=== PATIENT | female | born 1935 | race Caucasian/White ===

== ENCOUNTER 2019-04-28 16:24 | Inpatient (IN) ==
[2019-04-29] MEDS ORDERED: NITROGLYCERIN SL 0.4 MG/TAB TAB SL PRN (02:27)
[2019-04-29] MEDS ORDERED: POLYETHYLENE (MIRALAX) 17 GM PACK PO PRN (03:25)
[2019-04-29] MEDS ORDERED: GLUCOSE 10 TABS/TUBE PO PRN (03:26)
[2019-04-29] MEDS ORDERED: GLUCOSE 40% GEL 15 GM TUBE PO PRN (03:26)
[2019-04-29] MEDS ORDERED: DEXTROSE 50% 50 ML SYRINGE IV PRN (03:26)
[2019-04-29] MEDS ORDERED: CARBOHYDRATES FOR HYPOGLYCEMIA PO PRN (03:26)
[2019-04-29] MEDS ORDERED: GLUCAGON FOR INJ 1 MG VIAL SQ PRN (03:26)
[2019-04-29] MEDS: PATIENT'S ALLERGY INFO NEEDS ENTERED SCH ×2 (03:39→03:48)
[2019-04-29 03:43] LABS: Basophils # (auto) 0.02 K/uL (0-0.2); Basophils % (auto) 0.2 %; Eosinophils # (auto) 0.34 K/uL (0-0.5); Eosinophils % (auto) 3.9 %; Hematocrit (blood only) 30.6 % (37-47); Hemoglobin 9.8 g/dL (12.0-16.0); Immature Granulocytes # (auto) 0.01 K/uL (0.00-0.02); Immature Granulocytes % (auto) 0.1 %; Lymphocytes # (auto) 0.93 K/uL (1.2-3.4); Lymphocytes % (auto) 10.5 %; Mean Corpuscular Volume 87.4 fL (80-100); Mean Platelet Volume 11.1 fL (7.4-10.4); Monocytes # (auto) 0.97 K/uL (0.11-0.59); Neutrophils # (auto) 6.56 K/uL (1.4-6.5); Neutrophils % (auto) 74.3 %; Platelet Count 216 K/uL (130-400); RDW Coefficient of Variation 15.8 % (11.5-14.5); RDW Standard Deviation 49.6 fL (36.4-46.3); White Blood Count 8.83 K/uL (4.8-10.8)
[2019-04-29 03:57] LABS: INR 2.6 (0.9-1.1)
[2019-04-29 04:07] LABS: Albumin Level 2.7 gm/dl (3.4-5.0); BUN Creatinine Ratio 37.1 (10-20); Calcium 7.2 mg/dl (8.5-10.1); Creatinine Clr Calc Pharmacy 10.4 ml/min; Est GFR (African American) 13.1; Est GFR (Non-African American) 11.3; Magnesium 2.4 mg/dl (1.8-2.4); Potassium 2.3 mmol/L (3.5-5.1)
[2019-04-29 04:15] LABS: Albumin Globulin Ratio 0.5 (0.9-2); Bilirubin,Total 0.5 mg/dl (0.2-1); Globulin 5.1 gm/dl (2.5-4.0); Thyroid Stimulating Hormone 1.74 uIu/ml (0.300-4.500); Total Protein 7.8 gm/dl (6.4-8.2)
[2019-04-29] MEDS ORDERED: POTASSIUM CHLORIDE 40 MEQ in SODIUM CHLORIDE 0.9% 1000ML 1,000 ML IV SCH (04:30)
[2019-04-29] MEDS ORDERED: POTASSIUM CHLORIDE 20 MEQ TABCR PO STA (04:30)
[2019-04-29] MEDS ORDERED: INSULIN GLARGINE SOLOSTAR 100 UNITS/ML 3 ML PEN SC STA (04:34)
--- NOTE | 2019-04-29 04:37 | History & Physical Report ---
Date of Service April 29, 2019 Assessment & Plan (1) ARF (acute renal failure): ARF on CRI Recurrent AF Rate controlled INR therapeutic, history of recent LE DVT on Coumadin LGIB Rule out C. 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 fib rate control Cardiology consult RE recurrent AF Clear liquids for now RE L GIB Stool C. difficile May need GI consult if with worsening Basal insulin, ISS BG goal [id number], carb count coverage, update hemoglobin A1c PT OT eval DVT prophylaxis. Coumadin INR goal between 2 and 3 if hemoglobin stable and LGIB not progressive Full code Patient daughter requesting updates from providers. Ms. Crystal Dave, contact #[phone]. History of Present Illness As per records, lactate Chief Complaint: Abnormal kidney function Primary Care Provider: Dr. Kendrick History obtained from patient, family, and records. History somewhat limited from patient due to hearing impairment. Medical history significant for PAF, hypertension, hyperlipidemia, PVD status post surgery as per records, recent LE DVT on Coumadin, DM 2, insulin requiring, CRI (baseline creatinine 2.5-3), chronic anemia (baseline hemoglobin 8.6, 03/2019), history diverticulosis, mood disorder, possible dementia as per records. Recent confinement [facility] March 14-2018 for acute bilateral lower extremity DVT, ARF on CRI. Paroxysmal atrial fibrillation on EKG noted during confinement. TTE during confinement : Calculated LV ejection Fraction = 62% (bi-plane method of discs). There is a small sized inferior wall motion abnormality with hypokinesis of the segments. The left ventricular diastolic function is moderately abnormal (grade II). The left atrium is mildly enlarged. There is aortic valve sclerosis without stenosis. The right atrial size is normal. The right ventricular cavity size is normal (basal dimension < 4.2 cm RV apical 4 chamber view). The right ventricular systolic function is normal as assessed by tricuspid annular plane systolic excursion (TAPSE) (normal >1.7 cm). Trivial tricuspid regurgitation is present. The signal is inadequate to calculate pulmonary artery systolic pressure. Patient discharged to [place] rehab facility on Coumadin Rx for lower extremity DVT. Kidney function back to baseline on discharge. Two [facility] ER visits last month for epistaxis. Patient discharge home from rehab facility 2 weeks ago. Daughter has been staying with patient at home. Currently in the process of finding care home facility for patient given increased need for supervision as per records. Few weeks weeks history of intermittent rectal bleeding without abdominal pain without emesis. Symptoms noted at rehab facility as per daughter. Outpatient providers aware of issue. Patient had follow-up with PCP 2 days ago. Plavix stopped while patient on Coumadin as per records. MMSE score at the office was 17 indicating moderate to severe dementia as per records. Worsening rectal bleeding noted yesterday as per records. Loose bloody stools as per patient without abdominal pain. No chest pain, no S OB no fluid retention. Patient brought to [facility] for evaluation. Hemoglobin noted to be 8.9, potassium 2.6, creatinine 3.9, lactate 2.8. UA hazy, negative ketones, positive for blood, trace protein, negative nitrite, WBC esterase positive, epithelial cells positive A. fib noted on EKG. Patient transferred to [facility] for Nephrology services. Patient received 1 unit packed RBC at [facility] ER prior to transfer. 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, was living by herself at home prior to February 2019 [facility] confinement Allergies Allergy/AdvReac Type Severity Reaction Status Date / Time cephalexin [From Keflex] Allergy Mild Hives Verified 04/29/19 03:39 FELICIANO Inhibitors AdvReac Mild Cough Verified 04/29/19 03:39 Home Medications Home Medications Medication Instructions Recorded Confirmed Type acetaminophen 325 mg PO UD PRN 04/28/19 04/28/19 History alprazolam [Xanax] 0.25 mg PO DAILY PRN 04/28/19 04/28/19 History amlodipine 10 mg PO DAILY 04/28/19 04/28/19 History aspirin [Aspir-81] 81 mg PO DAILY 04/28/19 04/28/19 History cholecalciferol (vitamin D3) 400 unit PO DAILY 04/28/19 04/28/19 History [Vitamin D3] docusate sodium 100 mg PO BID 04/28/19 04/28/19 History insulin asp prt-insulin aspart 10 unit SUBCUT QPM 04/28/19 04/28/19 History [Novolog Mix 70-30FlexPen U-100] insulin asp prt-insulin aspart 24 unit SUBCUT QAM 04/28/19 04/28/19 History [Novolog Mix 70-30FlexPen U-100] levothyroxine 88 mcg PO DAILY 04/28/19 04/28/19 History metolazone 5 mg PO 2XWK 04/28/19 04/28/19 History mirabegron [Myrbetriq] 25 mg PO DAILY 04/28/19 04/28/19 History pantoprazole [Protonix] 40 mg PO DAILY 04/28/19 04/28/19 History polyethylene glycol 3350 [Miralax] 17 g PO DAILY PRN 04/28/19 04/28/19 History rosuvastatin [Crestor] 40 mg PO DAILY 04/28/19 04/28/19 History sertraline [Zoloft] 50 mg PO DAILY 04/28/19 04/28/19 History torsemide 60 mg PO DAILY 04/28/19 04/28/19 History tramadol 25 mg PO Q8 PRN 04/28/19 04/28/19 History vitamin E 100 unit PO DAILY 04/28/19 04/28/19 History warfarin [Coumadin] 2 mg PO HS 04/28/19 04/28/19 History Past Med/Surg History Social History Preferred Language: Greenlandic Communication Ability: Effective Time Lock Expert Required: No Beliefs That Will Affect Care: None Current Living Situation: Alone Other Information That Helps Us Care for You: No Feels Safe at Home: Yes Safety Concerns: Feels Safe At This Time Smoking Status: Never smoker Hx Alcohol Use: No Hx Substance Use: No Review of Systems Review of Systems: As per HPI, all 10 systems reviewed, all other ROS negative Physical Exam Physical Exam: GENERAL: Comfortable, hard of hearing, oriented to day, no respiratory distress SKIN: Pallor , warm HEENT: Pale palpebral conjunctivae, no ptosis, dry buccal mucosa NECK : Supple, no tenderness CHEST : Decreased breath sounds , no tenderness HEART : Irregular , no obvious murmurs ABDOMEN: Some distention, nontender EXTREMITIES : Minimal LE swelling, no LE tenderness, no other conspicuous deformities noted NEUROLOGIC : Coherent, no facial asymmetry, hard of hearing, intention tremors, no other gross focality Results & Data Vital Signs (Past 12 Hours) Vital Signs Temp Pulse Pulse Resp BP Pulse Ox 04/29/19 03:06 70 04/29/19 02:26 36.8 C 50 L 20 181/67 H 93 Laboratory Results Laboratory Results WBC 8.83 K/uL (4.8-10.8) 04/29/19 03:29 RBC 3.50 M/uL (4.2-5.4) L 04/29/19 03:29 Hgb 9.8 g/dL (12.0-16.0) L 04/29/19 03:29 Hct 30.6 % (37-47) L 04/29/19 03:29 MCV 87.4 fL (80-100) 04/29/19 03:29 MCH 28.0 pg (25-34) 04/29/19 03:29 MCHC 32.0 g/dL (32-36) 04/29/19 03:29 RDW Std Deviation 49.6 fL (36.4-46.3) H 04/29/19 03:29 RDW Coeff of Frank 15.8 % (11.5-14.5) H 04/29/19 03:29 Plt Count 216 K/uL (130-400) 04/29/19 03:29 MPV 11.1 fL (7.4-10.4) H 04/29/19 03:29 Immature Gran % (Auto) 0.1 % 04/29/19 03:29 Neut % (Auto) 74.3 % 04/29/19 03:29 Lymph % (Auto) 10.5 % 04/29/19 03:29 [place] % (Auto) 11.0 % 04/29/19 03:29 Eos % (Auto) 3.9 % 04/29/19 03:29 Baso % (Auto) 0.2 % 04/29/19 03:29 Immature Gran # (Auto) 0.01 K/uL (0.00-0.02) 04/29/19 03:29 Neut # (Auto) 6.56 K/uL (1.4-6.5) H 04/29/19 03:29 Lymph # (Auto) 0.93 K/uL (1.2-3.4) L 04/29/19 03:29 [place] # (Auto) 0.97 K/uL (0.11-0.59) H 04/29/19 03:29 Eos # (Auto) 0.34 K/uL (0-0.5) 04/29/19 03:29 Baso # (Auto) 0.02 K/uL (0-0.2) 04/29/19 03:29 PT 25.0 Seconds (9.0-12.0) H 04/29/19 03:29 INR 2.6 (0.9-1.1) H 04/29/19 03:29 Sodium 134 mmol/L (136-145) L 04/29/19 03:29 Potassium 2.3 mmol/L (3.5-5.1) L* 04/29/19 03:29 Chloride 88 mmol/L (98-107) L 04/29/19 03:29 Carbon Dioxide 36 mmol/L (21-32) H 04/29/19 03:29 Anion Gap 10.0 (3-11) 04/29/19 03:29 BUN 129 mg/dl (7-18) H 04/29/19 03:29 Creatinine 3.49 mg/dl (0.6-1.2) H 04/29/19 03:29 Est Cr Clr Drug Dosing 10.4 ml/min 04/29/19 03:29 Est GFR ( Amer) 13.1 04/29/19 03:29 Est GFR (Non-Af Amer) 11.3 04/29/19 03:29 BUN/Creatinine Ratio 37.1 (10-20) H 04/29/19 03:29 Glucose 235 mg/dl (70-99) H 04/29/19 03:29 POC Glucose 253 mg/dl (70-99) H 04/29/19 02:43 Lactate 1.2 mmol/L (0.4-2.0) 04/29/19 03:29 Calcium 7.2 mg/dl (8.5-10.1) L 04/29/19 03:29 Magnesium 2.4 mg/dl (1.8-2.4) 04/29/19 03:29 Total Bilirubin 0.5 mg/dl (0.2-1) 04/29/19 03:29 AST 17 U/L (15-37) 04/29/19 03:29 ALT 13 U/L (12-78) 04/29/19 03:29 Alkaline Phosphatase 73 U/L (45-117) 04/29/19 03:29 Total Protein 7.8 gm/dl (6.4-8.2) 04/29/19 03:29 Albumin 2.7 gm/dl (3.4-5.0) L 04/29/19 03:29 Globulin 5.1 gm/dl (2.5-4.0) H 04/29/19 03:29 Albumin/Globulin Ratio 0.5 (0.9-2) L 04/29/19 03:29 Lipase 594 U/L (73-393) H 04/29/19 03:29 TSH 1.740 uIu/ml (0.300-4.500) 04/29/19 03:29 Blood Type A Negative 04/29/19 03:29 Antibody Screen NEGATIVE 04/29/19 03:29 Diagnostic Findings Chest x-ray as per my interpretation cardiomegaly, atelectasis EKG as per my interpretation (ROSA Liao 04/28/19): Rate 80, A. fib, normal axis, T wave abnormalities lateral leads, septal infarct Code Status & VTE Plan VTE Prophylaxis Plan VTE Prophylaxis will be ordered: Yes
[2019-04-29] MEDS: AMLODIPINE BESYLATE 5 MG TAB PO SCH (04:56)
[2019-04-29] MEDS: INSULIN ASPART 100 UNITS/ML 3 ML PEN SC SCH ×5 (04:59→21:15)
[2019-04-29] MEDS: LEVOTHYROXINE SODIUM 88 MCG TABLET PO SCH (05:39)
[2019-04-29] MEDS ORDERED: POTASSIUM CHLORIDE 20 MEQ TABCR PO ONE ×2 (06:00→07:00)
[2019-04-29 06:15] LABS: Estimated Average Glucose 148 mg/dl; Hemoglobin A1C 6.8 % (4.5-5.6)
[2019-04-29] MEDS: METOPROLOL TARTRATE 25 MG TAB PO SCH ×2 (06:34→21:13)
--- NOTE | 2019-04-29 06:48 | XRay Report ---
XR chest 1V portable CLINICAL HISTORY: renal failure COMPARISON STUDY: No previous studies for comparison. FINDINGS: The heart is enlarged. There is aortic tortuosity/ectasia. There is mild interstitial thick ening but no evidence of overt failure. There is no focal pulmonary consolidation. There are no signi ficant pleural effusions.[ IMPRESSION: Cardiomegaly and mild interstitial thickening, a finding of uncertain chronicity. No evid ence of lobar consolidation ACT 112: Negative or not required by law. Electronically signed by: Eligio Burgos M.D. 04/29/2019 6:47 AM
[2019-04-29] MEDS: PANTOprazole 40 MG TAB PO SCH (07:52)
[2019-04-29] MEDS: ROSUVASTATIN CALCIUM 20 MG TAB PO SCH (07:52)
[2019-04-29] MEDS: SERTRALINE HCL 50 MG TABLET PO SCH (07:53)
[2019-04-29 09:50] LABS: Hematocrit (blood only) 31.1 % (37-47); Hemoglobin 10.2 g/dL (12.0-16.0)
[2019-04-29 10:13] LABS: BUN Creatinine Ratio 40.1 (10-20); Calcium 7.4 mg/dl (8.5-10.1); Creatinine Clr Calc Pharmacy 10.9 ml/min; Est GFR (African American) 13.9; Potassium 3.5 mmol/L (3.5-5.1)
[2019-04-29 15:55] LABS: Hematocrit (blood only) 30.7 % (37-47); Hemoglobin 9.8 g/dL (12.0-16.0)
--- NOTE | 2019-04-29 16:18 | Cardiology Consultation ---
Date of Consultation April 29, 2019 Assessment & Plan (1) PAF (paroxysmal atrial fibrillation): (2) GI bleed: (3) Anemia: (4) History of DVT (deep vein thrombosis): (5) Chronic anticoagulation: From a cardiac standpoint I do not see a significant atrial fibrillation burden. Given her active bleed and anemia I absolutely agree with holding the anticoagulation. I would not be concerned for anticoagulation from a cardiac standpoint given her low A. fib burden, obviously though her DVTs need to be treated and will defer to the primary team. She has had a recent echocardiogram that was unremarkable so no further cardiac testing is necessary at this time. Okay to DC telemetry from a cardiac standpoint. We will sign off please call with questions or concerns, Dr. Franklin will assume cardiology coverage after 5 PM today. History of Present Illness Reason for Consultation: Questionable atrial fibrillation in the setting of a GI bleed Requesting Physician: Dr. Power Attending Physician: Esther Power MD History of Present Illness It was my pleasure to see Mrs. Ayala in consultation today April 29, 2019 she is a very pleasant 84-year-old woman who is not known to the [facility] cardiology practice. She presented to [facility] as a transfer from [facility] after she presented with complaints of a GI bleed and significant anemia. She was ultimately transferred to [facility] for nephrology services. Patient was most recently admitted to [facility] for acute bilateral lower extremity DVTs in February for which she was started on Coumadin anticoagulation. A single EKG present in [facility] from March 14 was also read as atrial fibrillation. Since discharge she reported continued rectal bleeding and ultimately sought evaluation. Clinically she denies any cardiac complaints of chest pain, shortness of breath, palpitations, lightheadedness, dizziness or syncope. An EKG performed in [facility] emergency department was read as atrial fibrillation however I personally reviewed this EKG and disagree, this was sinus rhythm with occasional PACs. No significant episodes of atrial fibrillation on monitor after admission to [facility]. Allergies Allergy/AdvReac Type Severity Reaction Status Date / Time cephalexin [From Keflex] Allergy Mild Hives Verified 04/29/19 03:39 FELICIANO Inhibitors AdvReac Mild Cough Verified 04/29/19 03:39 Home Medications Home Medications Medication Instructions Recorded Confirmed Type acetaminophen 325 mg PO UD PRN 04/28/19 04/28/19 History alprazolam [Xanax] 0.25 mg PO DAILY PRN 04/28/19 04/28/19 History amlodipine 10 mg PO DAILY 04/28/19 04/28/19 History aspirin [Aspir-81] 81 mg PO DAILY 04/28/19 04/28/19 History cholecalciferol (vitamin D3) 400 unit PO DAILY 04/28/19 04/28/19 History [Vitamin D3] docusate sodium 100 mg PO BID 04/28/19 04/28/19 History insulin asp prt-insulin aspart 10 unit SUBCUT QPM 04/28/19 04/28/19 History [Novolog Mix 70-30FlexPen U-100] insulin asp prt-insulin aspart 24 unit SUBCUT QAM 04/28/19 04/28/19 History [Novolog Mix 70-30FlexPen U-100] levothyroxine 88 mcg PO DAILY 04/28/19 04/28/19 History metolazone 5 mg PO 2XWK 04/28/19 04/28/19 History mirabegron [Myrbetriq] 25 mg PO DAILY 04/28/19 04/28/19 History pantoprazole [Protonix] 40 mg PO DAILY 04/28/19 04/28/19 History polyethylene glycol 3350 [Miralax] 17 g PO DAILY PRN 04/28/19 04/28/19 History rosuvastatin [Crestor] 40 mg PO DAILY 04/28/19 04/28/19 History sertraline [Zoloft] 50 mg PO DAILY 04/28/19 04/28/19 History torsemide 60 mg PO DAILY 04/28/19 04/28/19 History tramadol 25 mg PO Q8 PRN 04/28/19 04/28/19 History vitamin E 100 unit PO DAILY 04/28/19 04/28/19 History warfarin [Coumadin] 2 mg PO HS 04/28/19 04/28/19 History Patient History Social History Preferred Language: Polish Communication Ability: Effective Administrative Tech Required: No Beliefs That Will Affect Care: None Current Living Situation: Alone Other Information That Helps Us Care for You: No Feels Safe at Home: Yes Safety Concerns: Feels Safe At This Time Smoking Status: Never smoker Hx Alcohol Use: No Hx Substance Use: No Review of Systems Review of Systems: All systems reviewed & are unremarkable except as noted in HPI & below Physical Exam Physical Exam: General: Awake, alert and oriented x 3. No acute distress. HEENT: Normocephalic, atraumatic. Pupils equal, round and reactive to light and accommodation. Extraocular muscles are intact. Anicteric sclera. Moist mucous membranes. Neck: No JVD. No bruit. Cardiovascular: Regular. Positive S-4. Normal S-1 and S-2. No S-3. 3/6 mid to late systolic ejection murmur, greatest at the right sternal border, second intercostal space with radiation to the bilateral carotids. No rubs. Pulmonary: Clear to auscultation bilaterally. No rales, rhonchi, or wheezing. Abdomen: Bowel sounds x 4, soft. No rebound, guarding or tenderness. No organomegaly. Extremities: No clubbing, cyanosis or edema. +2 pedal pulses bilaterally. Skin: Warm and dry. Results & Data Vital Signs (Past 12 Hours) Vital Signs Temp Pulse Pulse Resp BP Pulse Ox 04/29/19 15:31 37.1 C 61 18 172/70 H 92 04/29/19 15:18 62 04/29/19 08:00 78 04/29/19 07:33 36.3 C L 65 16 155/68 H 91 Laboratory Results Laboratory Results - last 24 hr 04/29/19 04/29/19 04/29/19 02:43 03:29 03:29 WBC 8.83 RBC 3.50 L Hgb 9.8 L Hct 30.6 L MCV 87.4 MCH 28.0 MCHC 32.0 RDW Std Deviation 49.6 H RDW Coeff of Frank 15.8 H Plt Count 216 MPV 11.1 H Immature Gran % (Auto) 0.1 Neut % (Auto) 74.3 Lymph % (Auto) 10.5 [place] % (Auto) 11.0 Eos % (Auto) 3.9 Baso % (Auto) 0.2 Immature Gran # (Auto) 0.01 Neut # (Auto) 6.56 H Lymph # (Auto) 0.93 L [place] # (Auto) 0.97 H Eos # (Auto) 0.34 Baso # (Auto) 0.02 PT 25.0 H INR 2.6 H Sodium Potassium Chloride Carbon Dioxide Anion Gap BUN Creatinine Est Cr Clr Drug Dosing Est GFR ( Amer) Est GFR (Non-Af Amer) BUN/Creatinine Ratio Glucose POC Glucose 253 H Estimat Average Glucose Hemoglobin A1c Lactate Calcium Magnesium Total Bilirubin AST ALT Alkaline Phosphatase Total Protein Albumin Globulin Albumin/Globulin Ratio Lipase TSH Blood Type Antibody Screen 04/29/19 04/29/19 04/29/19 03:29 03:29 03:29 WBC RBC Hgb Hct MCV MCH MCHC RDW Std Deviation RDW Coeff of Frank Plt Count MPV Immature Gran % (Auto) Neut % (Auto) Lymph % (Auto) [place] % (Auto) Eos % (Auto) Baso % (Auto) Immature Gran # (Auto) Neut # (Auto) Lymph # (Auto) [place] # (Auto) Eos # (Auto) Baso # (Auto) PT INR Sodium 134 L Potassium 2.3 L* Chloride 88 L Carbon Dioxide 36 H Anion Gap 10.0 BUN 129 H Creatinine 3.49 H Est Cr Clr Drug Dosing 10.4 Est GFR ( Amer) 13.1 Est GFR (Non-Af Amer) 11.3 BUN/Creatinine Ratio 37.1 H Glucose 235 H POC Glucose Estimat Average Glucose 148 Hemoglobin A1c 6.8 H Lactate Calcium 7.2 L Magnesium 2.4 Total Bilirubin 0.5 AST 17 ALT 13 Alkaline Phosphatase 73 Total Protein 7.8 Albumin 2.7 L Globulin 5.1 H Albumin/Globulin Ratio 0.5 L Lipase 594 H TSH 1.740 Blood Type A Negative Antibody Screen NEGATIVE 04/29/19 04/29/19 04/29/19 03:29 04:59 07:53 WBC RBC Hgb Hct MCV MCH MCHC RDW Std Deviation RDW Coeff of Frank Plt Count MPV Immature Gran % (Auto) Neut % (Auto) Lymph % (Auto) [place] % (Auto) Eos % (Auto) Baso % (Auto) Immature Gran # (Auto) Neut # (Auto) Lymph # (Auto) [place] # (Auto) Eos # (Auto) Baso # (Auto) PT INR Sodium Potassium Chloride Carbon Dioxide Anion Gap BUN Creatinine Est Cr Clr Drug Dosing Est GFR ( Amer) Est GFR (Non-Af Amer) BUN/Creatinine Ratio Glucose POC Glucose 256 H 98 Estimat Average Glucose Hemoglobin A1c Lactate 1.2 Calcium Magnesium Total Bilirubin AST ALT Alkaline Phosphatase Total Protein Albumin Globulin Albumin/Globulin Ratio Lipase TSH Blood Type Antibody Screen 04/29/19 04/29/19 04/29/19 09:43 09:43 11:42 WBC RBC Hgb 10.2 L Hct 31.1 L MCV MCH MCHC RDW Std Deviation RDW Coeff of Frank Plt Count MPV Immature Gran % (Auto) Neut % (Auto) Lymph % (Auto) [place] % (Auto) Eos % (Auto) Baso % (Auto) Immature Gran # (Auto) Neut # (Auto) Lymph # (Auto) [place] # (Auto) Eos # (Auto) Baso # (Auto) PT INR Sodium 135 L Potassium 3.5 D Chloride 93 L Carbon Dioxide 33 H Anion Gap 9.0 BUN 134 H Creatinine 3.33 H Est Cr Clr Drug Dosing 10.9 Est GFR ( Amer) 13.9 Est GFR (Non-Af Amer) 12.0 BUN/Creatinine Ratio 40.1 H Glucose 231 H POC Glucose 237 H Estimat Average Glucose Hemoglobin A1c Lactate Calcium 7.4 L Magnesium Total Bilirubin AST ALT Alkaline Phosphatase Total Protein Albumin Globulin Albumin/Globulin Ratio Lipase TSH Blood Type Antibody Screen 04/29/19 15:46 WBC RBC Hgb 9.8 L Hct 30.7 L MCV MCH MCHC RDW Std Deviation RDW Coeff of Frank Plt Count MPV Immature Gran % (Auto) Neut % (Auto) Lymph % (Auto) [place] % (Auto) Eos % (Auto) Baso % (Auto) Immature Gran # (Auto) Neut # (Auto) Lymph # (Auto) [place] # (Auto) Eos # (Auto) Baso # (Auto) PT INR Sodium Potassium Chloride Carbon Dioxide Anion Gap BUN Creatinine Est Cr Clr Drug Dosing Est GFR ( Amer) Est GFR (Non-Af Amer) BUN/Creatinine Ratio Glucose POC Glucose Estimat Average Glucose Hemoglobin A1c Lactate Calcium Magnesium Total Bilirubin AST ALT Alkaline Phosphatase Total Protein Albumin Globulin Albumin/Globulin Ratio Lipase TSH Blood Type Antibody Screen
--- NOTE | 2019-04-29 18:05 | Communication Note ---
Date of Service: April 29, 2019 Pt was seen and examined Sitting in chair with no distress Pt said that she feels much better She said her stool is not as dark anymore She denies any chest pain, palpitation, dizziness and SOB Exam General- No acute distress Head- atraumatic Eyes- PERRL, EOMI, ENT- oropharynx clear Neck- supple, no JVD Lungs- clear to auscultation Heart- regular rhythm; +systolic murmur Abdomen- normal bowel sounds, soft, nontender Extremities- no calf tenderness Neuro- alert, oriented x 3; PERRL, EOMI; no facial palsy; no dysarthria Skin- warm & dry A/P GI bleed Anemia Mostly related with the combination of Plavix, aspirin and coumadin Hgb on admission 9.8 after received 1 unit PRBC at [facility] Hgb this morning 9.8 Coumadin has been on hold Plavix was d/c by PCP 2 days ago Continue monitor H/H If hgb dropped below 8, will transfuse Afib Currently on NSR Rate controlled with metoprolol cardiology on board and further cardiac testing needed Recent ECHO on last admission at [place] showed: Calculated LV ejection Fraction = 62% (bi-plane method of discs). There is a small sized inferior wall motion abnormality with Hypokinesis of the segments. The left ventricular diastolic function is moderately abnormal (grade II). Stable from cardiology standpoint B/L LE DVT Recently diagnosed in Feb On coumadin that has been on hold due to GI bleed He was also on plavix that was d/c 3 days ago Consider to resume coumadin if Hgb stable If GI bleed reoccurs, will consider to get IVC filter Continue monitor DM type 2 BS elevated Hba1c 6.8 On lantus 10mg BID while in the hospital Continue novolog sliding scale Continue monitor BS LUCILLE on CKD Creatinine on admission 3.4, baseline close to 3 Creatinine 3.3 today Nephrology on board Continue gentle hydration Torsemide on hold Continue monitor BMP DVT px on SCD due to GI bleeding Code Status Full code
--- NOTE | 2019-04-29 18:53 | Nephrology Consultation ---
Date of Consultation April 29, 2019 Assessment & Plan (1) Acute on chronic renal failure: imporoving w/ holding diuretic and hydration. baseline 2.4-2.8. nonoliguric prerenal; apart from K, chemistries acceptable as is volume status. -daily bmp -cont to hold diuretic Present on Admission?: Yes (2) Hypertension: uncontrolled; on routine OP metoprolol and amlodipine; diuretics held -add hydralazine bid 10 mg -control /evaluate back pain Present on Admission?: Yes (3) Hypokalemia: improving after massive doses of K today (160 mEq) > may have been so low d/t use of high dose torsemide w/o K supplements; no report of diarrhea (but pt gives poor hx) -she had 3 bm today, so will recheck K this evening Present on Admission?: Yes (4) Anemia: stable hgb so far; AC on hold; per primary service -significant and ? atypical bruising on proximal legs -- monitor for occult bleed as needed Present on Admission?: Yes (5) Back pain: points to her sacrum in describing it; Dr Conner aware and to check pelvic XR -low threshold for renal u/s and/or CT abd/pelvis if ongoing/ unexplained -monitor for occult bleeding given bruising/anemia Present on Admission?: Yes History of Present Illness Reason for Consultation: kristy on ckd Requesting Physician: dr wei Attending Physician: Esther Power MD History of Present Illness 84 y/o F whom I'm asked to see for kristy on ckd was admitted here overnight after presenting with a few weeks of intermittent rectal bleeding and found to have hgb 8.9, critical low K (2.6) and creatinine 3.9 at [facility] where she first presented. Pt seen and evaluated at 1500 on afternoon rounds. Follows w/ Dr May in CKD clinic, last seen 04/12/19: at that visit he stopped her metolazone and planned torsemide 60 mg daily. PMH includes DM on insulin, htn, CKD 4, PVD s/p LE stent remotedly, AFib on AC, dementia. Also recently admitted [facility] 03/14- for LE DVT. she was transferred here for higher level of care. cardiology has evaluated the pt; refer to their recs regarding AC; a fib is not believed to be severe for her. her hgb has remained 9.8-10.2 on 3 q6h checks; AC has been held. She had 120 mEq K po and 40 mEq IV : repeat bmp at 10 am today showed K 3.5. Pt on evaluation feels well but does complain of "back pain" and points to her sacrum. denies falls but admits her memory not the greatest recently. Allergies Allergy/AdvReac Type Severity Reaction Status Date / Time cephalexin [From Keflex] Allergy Mild Hives Verified 04/29/19 03:39 FELICIANO Inhibitors AdvReac Mild Cough Verified 04/29/19 03:39 Home Medications Home Medications Medication Instructions Recorded Confirmed Type acetaminophen 325 mg PO UD PRN 04/28/19 04/28/19 History alprazolam [Xanax] 0.25 mg PO DAILY PRN 04/28/19 04/28/19 History amlodipine 10 mg PO DAILY 04/28/19 04/28/19 History aspirin [Aspir-81] 81 mg PO DAILY 04/28/19 04/28/19 History cholecalciferol (vitamin D3) 400 unit PO DAILY 04/28/19 04/28/19 History [Vitamin D3] docusate sodium 100 mg PO BID 04/28/19 04/28/19 History insulin asp prt-insulin aspart 10 unit SUBCUT QPM 04/28/19 04/28/19 History [Novolog Mix 70-30FlexPen U-100] insulin asp prt-insulin aspart 24 unit SUBCUT QAM 04/28/19 04/28/19 History [Novolog Mix 70-30FlexPen U-100] levothyroxine 88 mcg PO DAILY 04/28/19 04/28/19 History metolazone 5 mg PO 2XWK 04/28/19 04/28/19 History mirabegron [Myrbetriq] 25 mg PO DAILY 04/28/19 04/28/19 History pantoprazole [Protonix] 40 mg PO DAILY 04/28/19 04/28/19 History polyethylene glycol 3350 [Miralax] 17 g PO DAILY PRN 04/28/19 04/28/19 History rosuvastatin [Crestor] 40 mg PO DAILY 04/28/19 04/28/19 History sertraline [Zoloft] 50 mg PO DAILY 04/28/19 04/28/19 History torsemide 60 mg PO DAILY 04/28/19 04/28/19 History tramadol 25 mg PO Q8 PRN 04/28/19 04/28/19 History vitamin E 100 unit PO DAILY 04/28/19 04/28/19 History warfarin [Coumadin] 2 mg PO HS 04/28/19 04/28/19 History Patient History Medical History (Updated 04/29/19 @ 19:07 by Mulu Silva MD, PhD) CKD (chronic kidney disease) stage 4, GFR 15-29 ml/min Dementia suspected Diabetes History of DVT (deep vein thrombosis) Hypertension PAF (paroxysmal atrial fibrillation) Peripheral vascular disease s/p lower extremity stent Social History Preferred Language: Greenlandic Communication Ability: Effective Coding And Reimbursement Specialist Required: No Beliefs That Will Affect Care: None Current Living Situation: Alone Other Information That Helps Us Care for You: No Feels Safe at Home: Yes Safety Concerns: Feels Safe At This Time Smoking Status: Never smoker Hx Alcohol Use: No Hx Substance Use: No Review of Systems Constitutional: + fatigue (from being up all night) Musculoskeletal: + back pain (points to bandage on her sacrum when asked to locate this; denies fall but admits does not remember) Neurologic: + memory loss (chronic/stable) Hematologic / Lymphatic: + easy bleeding (reported on h&p but can give few details) Physical Exam Constitutional: well developed, well nourished and cooperative; no acute distress lying nearly flat on RA Eyes: EOM intact bilaterally ENMT: Ears: no external ear abnormality Nose: no external nose abnormality Mouth: + dry oral mucous membranes Neck: no nuchal rigidity Respiratory: normal respiratory effort Auscultation: lungs clear to auscultation bilaterally and + diminished lung sounds Cardiovascular: Rate/Rhythm: + irregularly irregular Extremities: no edema Gastrointestinal (Abdomen): Inspection/Auscultation: normal bowel sounds; abdomen not distended Percussion/Palpation: abdomen soft; abdomen nontender Musculoskeletal: Extremities: strength 5/5 throughout moves all extremities, maneuvers w/ effort to roll to her side for exam Skin: no rashes, warm and dry + lesion (wound dressing sacrum) and + ecchymosis (7-10 ecchymoses L thigh each 3 cm diameter all recent; some R thigh too) Neurologic: awake Speech / Cognition: normal speech Motor/Sensory: + abnormal movement (weak) camara, fluent speech, no tremor Psychiatric: Orientation: alert, oriented to person and oriented to place Speech: normal rate/rhythm/volume of speech Affect: euthymic affect Cognition: + recent memory not intact and + remote memory not intact Insight: + limited insight cannot tell me if she fell recently or not-states cannot remember Genitourinary: no olivera Results & Data Vital Signs (Past 12 Hours) Vital Signs Temp Pulse Pulse Resp BP Pulse Ox 04/29/19 15:31 37.1 C 61 18 172/70 H 92 04/29/19 15:18 62 04/29/19 08:00 78 04/29/19 07:33 36.3 C L 65 16 155/68 H 91 Laboratory Results 04/29/19 15:46 04/29/19 09:43 Diagnostic Findings xr Cardiomegaly and mild interstitial thickening, a finding of uncertain chronicity. No evidence of lobar consolidation per cardiology consult, recent TTE unremarkable (1) Acute on chronic renal failure Acute renal failure type: unspecified Chronic kidney disease stage: stage 4 ( severe) Qualified Code(s): N17.9 - Acute kidney failure, unspecified; N18.4 - Chronic kidney disease, stage 4 (severe) (2) Hypertension Hypertension type: essential hypertension Qualified Code(s): I10 - Essential (primary) hypertension
[2019-04-29 20:09] LABS: BUN Creatinine Ratio 37.6 (10-20); Calcium 7.4 mg/dl (8.5-10.1); Creatinine Clr Calc Pharmacy 10.8 ml/min; Est GFR (African American) 13.7; Est GFR (Non-African American) 11.9; Potassium 3.9 mmol/L (3.5-5.1)
[2019-04-29 20:21] LABS: Beta-Hydroxybutyrate 0.71 mg/dl (0.2-2.81)
[2019-04-29] MEDS: LIDOCAINE 5% 1 PATCH TD SCH (21:09)
[2019-04-29] MEDS: INSULIN GLARGINE SOLOSTAR 100 UNITS/ML 3 ML PEN SC SCH (21:12)
[2019-04-29] MEDS: ACETAMINOPHEN 325 MG TAB PO PRN (21:18)
--- NOTE | 2019-04-29 22:44 | XRay Report ---
XR pelvis 1-2V routine HISTORY: 84 years-old Female Lower back pain acute low back pain COMPARISON: None available TECHNIQUE: Portable AP view the pelvis FINDINGS: Demineralized appearance of the bones. 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 No acute fracture, dislocation or avascular necrosis. Degenerative changes of the SI joints and imaged lower lumbar spine. Arterial calcifications. IMPRESSION: No acute fracture or dislocation. ACT 112: Negative or not required by law. The above report was generated using voice recognition software. It may contain grammatical, syntax o r spelling errors. Electronically signed by: Lenin Wilkins M.D. 04/29/2019 10:42 PM
[2019-04-30] MEDS: LEVOTHYROXINE SODIUM 88 MCG TABLET PO SCH (06:15)
[2019-04-30 08:28] LABS: INR 2.4 (0.9-1.1); Prothrombin Time 23.1 Seconds (9.0-12.0)
[2019-04-30] MEDS: INSULIN ASPART 100 UNITS/ML 3 ML PEN SC SCH ×4 (08:38→21:08)
[2019-04-30] MEDS: INSULIN GLARGINE SOLOSTAR 100 UNITS/ML 3 ML PEN SC SCH ×2 (08:39→21:08)
[2019-04-30] MEDS: ROSUVASTATIN CALCIUM 20 MG TAB PO SCH (08:40)
[2019-04-30] MEDS: METOPROLOL TARTRATE 25 MG TAB PO SCH ×2 (08:41→20:34)
[2019-04-30] MEDS: AMLODIPINE BESYLATE 5 MG TAB PO SCH (08:41)
[2019-04-30] MEDS: PANTOprazole 40 MG TAB PO SCH (08:41)
[2019-04-30] MEDS: SERTRALINE HCL 50 MG TABLET PO SCH (08:41)
[2019-04-30] MEDS ORDERED: INSULIN GLARGINE SOLOSTAR 100 UNITS/ML 3 ML PEN SC SCH (09:00)
--- NOTE | 2019-04-30 09:50 | Nephrology Progress Note ---
Date of Service April 30, 2019 Assessment & Plan (1) Acute on chronic renal failure: Creatinine is stable at 3.3, same as yesterday. BUN of 127 likely due to GI bleed. baseline 2.4-2.8. nonoliguric prerenal; apart from K, chemistries acceptable as is volume status. -daily bmp -cont to hold diuretic (2) Hypertension: uncontrolled; on routine OP metoprolol and amlodipine; diuretics held -control /evaluate back pain (3) Hypokalemia: improving after massive doses of K today (160 mEq) > may have been so low d/t use of high dose torsemide w/o K supplements; no report of diarrhea (but pt gives poor hx) -k 3.9 today. (4) Anemia: Likely due to GI bleed. Patient needs GI evaluation. AC on hold; per primary service (5) Back pain: points to her sacrum in describing it; Dr Conner aware and to check pelvic XR -low threshold for renal u/s and/or CT abd/pelvis if ongoing/ unexplained -monitor for occult bleeding given bruising/anemia Subjective Patient still bleeding per rectum. She had some bright red blood on wiping this morning. No shortness of breath. She has mild back pain. No urinary symptoms. Review of Systems Review of Systems: All systems reviewed & are unremarkable except as noted in HPI & below Physical Exam Physical Exam: General exam: Appears comfortable, no acute distress HEENT: Pupils are equal and reactive to light Neck: No JVD, neck is supple trachea is midline Respiratory system: Clear breath sounds bilaterally. Gastrointestinal: Abdomen is soft, non distended, non tender, bowel sounds are present CVS: Regular rate and rhythm. No murmurs, rubs or gallops Musculoskeletal: No joint or muscle tenderness Extremities: Non tender, no edema, peripheral pulses are present Neuro: Oriented, no tremors, no focal neurological deficits Skin: No rashes Results & Data Vital Signs (Past 12 Hours) Vital Signs Temp Pulse Pulse Resp BP BP Pulse Ox 04/30/19 07:55 73 04/30/19 07:46 36.8 C 71 18 176/73 H 90 04/30/19 05:03 36.7 C 72 18 176/71 H 92 04/29/19 23:52 36.9 C 59 L 20 141/65 H 91 Laboratory Results 04/29/19 19:34 Laboratory Results - last 24 hr 04/29/19 04/29/19 04/29/19 09:43 09:43 11:42 Hgb 10.2 L Hct 31.1 L PT INR Sodium 135 L Potassium 3.5 D Chloride 93 L Carbon Dioxide 33 H Anion Gap 9.0 BUN 134 H Creatinine 3.33 H Est Cr Clr Drug Dosing 10.9 Est GFR ( Amer) 13.9 Est GFR (Non-Af Amer) 12.0 BUN/Creatinine Ratio 40.1 H Glucose 231 H POC Glucose 237 H Calcium 7.4 L Beta-Hydroxybutyric Acd 04/29/19 04/29/19 04/29/19 15:46 17:44 17:45 Hgb 9.8 L Hct 30.7 L PT INR Sodium Potassium Chloride Carbon Dioxide Anion Gap BUN Creatinine Est Cr Clr Drug Dosing Est GFR ( Amer) Est GFR (Non-Af Amer) BUN/Creatinine Ratio Glucose POC Glucose 377 H* 414 H* Calcium Beta-Hydroxybutyric Acd 04/29/19 04/29/19 04/29/19 17:46 19:34 20:18 Hgb Hct PT INR Sodium 136 Potassium 3.9 Chloride 96 L Carbon Dioxide 32 Anion Gap 8.0 BUN 127 H Creatinine 3.36 H Est Cr Clr Drug Dosing 10.8 Est GFR ( Amer) 13.7 Est GFR (Non-Af Amer) 11.9 BUN/Creatinine Ratio 37.6 H Glucose 342 H* POC Glucose 357 H* 277 H Calcium 7.4 L Beta-Hydroxybutyric Acd 0.71 04/30/19 04/30/19 07:24 07:42 Hgb Hct PT 23.1 H INR 2.4 H Sodium Potassium Chloride Carbon Dioxide Anion Gap BUN Creatinine Est Cr Clr Drug Dosing Est GFR ( Amer) Est GFR (Non-Af Amer) BUN/Creatinine Ratio Glucose POC Glucose 264 H Calcium Beta-Hydroxybutyric Acd (1) Acute on chronic renal failure Acute renal failure type: unspecified Chronic kidney disease stage: stage 4 (severe) Qualified Code(s): N17.9 - Acute kidney failure, unspecified; N18.4 - Chronic kidney disease, stage 4 (severe) (2) Hypertension Hypertension type: essential hypertension Qualified Code(s): I10 - Essential (primary) hypertension
[2019-04-30 10:02] LABS: BUN Creatinine Ratio 33.1 (10-20); Calcium 7.6 mg/dl (8.5-10.1); Creatinine Clr Calc Pharmacy 11.2 ml/min; Est GFR (African American) 14.5; Est GFR (Non-African American) 12.5; Potassium 3.5 mmol/L (3.5-5.1)
[2019-04-30 10:11] LABS: Hematocrit (blood only) 32.2 % (37-47); Hemoglobin 10.1 g/dL (12.0-16.0); Mean Corpuscular Hemoglobin 28.1 pg (25-34); Mean Corpuscular Hgb Conc 31.4 g/dL (32-36); Mean Corpuscular Volume 89.7 fL (80-100); Mean Platelet Volume 13.6 fL (7.4-10.4); Platelet Count 214 K/uL (130-400); RDW Coefficient of Variation 16.3 % (11.5-14.5); RDW Standard Deviation 53.4 fL (36.4-46.3); Red Blood Count 3.59 M/uL (4.2-5.4); White Blood Count 11.89 K/uL (4.8-10.8)
--- NOTE | 2019-04-30 18:05 | Hospitalist Progress Note ---
Date of Service April 30, 2019 Assessment & Plan (1) ARF (acute renal failure): ARF on CRI Recurrent AF Rate controlled INR therapeutic, history of recent LE DVT on Coumadin LGIB Rule out C. 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 fib rate control Cardiology consult RE recurrent AF Clear liquids for now RE L GIB Stool C. difficile May need GI consult if with worsening Basal insulin, ISS BG goal [id number], carb count coverage, update hemoglobin A1c PT OT eval DVT prophylaxis. Coumadin INR goal between 2 and 3 if hemoglobin stable and LGIB not progressive Full code Patient daughter requesting updates from providers. Ms. Crystal Dave, contact #[phone]. (2) GI bleed: GI bleed Anemia Mostly related with the combination of Plavix, aspirin and coumadin Hgb on admission 9.8 after received 1 unit PRBC at [facility] Hgb this morning 9.8 Coumadin has been on hold Plavix was d/c by PCP 2 days ago Continue monitor H/H If hgb dropped below 8, will transfuse Afib Currently on NSR Rate controlled with metoprolol cardiology on board and further cardiac testing needed Recent ECHO on last admission at [facility] showed: Calculated LV ejection Fraction = 62% (bi-plane method of discs). There is a small sized inferior wall motion abnormality with Hypokinesis of the segments. The left ventricular diastolic function is moderately abnormal (grade II). Stable from cardiology standpoint B/L LE DVT Recently diagnosed in Feb On coumadin that has been on hold due to GI bleed He was also on plavix that was d/c 3 days ago Consider to resume coumadin if Hgb stable Had a bright red episode of BM today If GI bleed reoccurs, will consider to get IVC filter Consider vascular surgery consult Continue monitor DM type 2 BS elevated Hba1c 6.8 On lantus 10mg BID while in the hospital Continue novolog sliding scale Continue monitor BS LUCILLE on CKD Creatinine on admission 3.4, baseline close to 3 Creatinine 3.3 today Nephrology on board Continue gentle hydration Torsemide on hold Continue monitor BMP Left back pain Xray showed no acute fracture or dislocation. Continue Lidocaine patch and Tylenol PRN DVT px on SCD due to GI bleeding Code Status Full code Disposition Plan to transition to SNF Patient daughter requesting updates from providers. Ms. Crystal Dave, contact #[phone]. Subjective Pt was seen and examined Lying in bed with no distress Pt said that her back pain improves Pt had a small bloody bowel movement this morning Denies any chest pain, palpitation and SOB Physical Exam Physical Exam: General- No acute distress Head- atraumatic Eyes- PERRL, EOMI, ENT- oropharynx clear Neck- supple, no JVD Lungs- No wheezing Heart- regular rhythm; +systolic murmur Abdomen- normal bowel sounds, soft, nontender Extremities- no calf tenderness Neuro- alert, oriented x 3; PERRL, EOMI; no facial palsy; no dysarthria Skin- warm & dry, +bruises in LE Results & Data ([facility]) Vital Signs (Past 12 Hours) Vital Signs Temp Pulse Pulse Resp BP BP Pulse Ox 04/30/19 14:43 36.7 C 70 18 128/56 L 91 04/30/19 12:00 36.6 C 62 18 133/88 93 04/30/19 07:55 73 04/30/19 07:46 36.8 C 71 18 176/73 H 90
[2019-04-30] MEDS: LIDOCAINE 5% 1 PATCH TD SCH (20:34)
[2019-04-30] MEDS: ACETAMINOPHEN 325 MG TAB PO PRN (20:35)
[2019-05-01] MEDS ORDERED: POTASSIUM CHLORIDE 10 MEQ TABCR PO STA (04:47)
[2019-05-01] MEDS ORDERED: MAGNESIUM SULFATE / D5W 1 GM/100 ML BAG IV ONE (04:47)
[2019-05-01] MEDS: METOPROLOL TARTRATE 25 MG TAB PO SCH ×2 (05:20→21:56)
[2019-05-01 05:56] LABS: Hematocrit (blood only) 32.1 % (37-47); Hemoglobin 10.2 g/dL (12.0-16.0); Mean Corpuscular Hemoglobin 28.3 pg (25-34); Mean Corpuscular Hgb Conc 31.8 g/dL (32-36); Mean Corpuscular Volume 88.9 fL (80-100); Mean Platelet Volume 12.2 fL (7.4-10.4); Platelet Count 184 K/uL (130-400); Red Blood Count 3.61 M/uL (4.2-5.4); White Blood Count 9.44 K/uL (4.8-10.8)
[2019-05-01 06:39] LABS: BUN Creatinine Ratio 35.5 (10-20); Calcium 7.9 mg/dl (8.5-10.1); Creatinine Clr Calc Pharmacy 11.2 ml/min; Est GFR (African American) 14.5; Est GFR (Non-African American) 12.5; Potassium 2.9 mmol/L (3.5-5.1)
[2019-05-01] MEDS: LEVOTHYROXINE SODIUM 88 MCG TABLET PO SCH (06:41)
[2019-05-01] MEDS ORDERED: POTASSIUM CHLORIDE 20 MEQ TABCR PO STA ×2 (06:44→08:04)
[2019-05-01] MEDS ORDERED: POTASSIUM CHLORIDE / WTR 10 MEQ/100 ML PLCT IV SCH (08:15)
[2019-05-01] MEDS: INSULIN GLARGINE SOLOSTAR 100 UNITS/ML 3 ML PEN SC SCH ×2 (08:51→21:59)
[2019-05-01] MEDS: INSULIN ASPART 100 UNITS/ML 3 ML PEN SC SCH ×4 (08:52→21:58)
[2019-05-01] MEDS: PANTOprazole 40 MG TAB PO SCH (08:57)
[2019-05-01] MEDS: AMLODIPINE BESYLATE 5 MG TAB PO SCH (08:57)
[2019-05-01] MEDS: ROSUVASTATIN CALCIUM 20 MG TAB PO SCH (08:57)
[2019-05-01] MEDS: SERTRALINE HCL 50 MG TABLET PO SCH (08:57)
--- NOTE | 2019-05-01 09:51 | Nephrology Progress Note ---
Date of Service May 01, 2019 Assessment & Plan (1) Acute on chronic renal failure: Creatinine is stable at 3.2, same as yesterday. BUN of 114 likely due to GI bleed. baseline 2.4-2.8. nonoliguric prerenal; apart from K, chemistries acceptable as is volume status. -daily bmp -cont to hold diuretic (2) Hypertension: uncontrolled; on routine OP metoprolol and amlodipine; diuretics held -control /evaluate back pain (3) Hypokalemia: improving after massive doses of K today (160 mEq) > may have been so low d/t use of high dose torsemide w/o K supplements; no report of diarrhea (but pt gives poor hx) -k 2.9 today. -Recommend standing potassium chloride 40 mEq twice daily p.o. (4) Anemia: Likely due to GI bleed. Patient needs GI evaluation. AC on hold; per primary service (5) Back pain: points to her sacrum in describing it; Dr Conner aware and to check pelvic XR -low threshold for renal u/s and/or CT abd/pelvis if ongoing/ unexplained -monitor for occult bleeding given bruising/anemia Subjective Patient feels better today. No rectal bleed today. No diarrhea. Potassium continues to drop. No shortness of breath. Creatinine is stable Review of Systems Review of Systems: All systems reviewed & are unremarkable except as noted in HPI & below Physical Exam 2 Physical Exam: General exam: Appears comfortable, no acute distress HEENT: Pupils are equal and reactive to light Neck: No JVD, neck is supple trachea is midline Respiratory system: Clear breath sounds bilaterally. Gastrointestinal: Abdomen is soft, non distended, non tender, bowel sounds are present CVS: Regular rate and rhythm. No murmurs, rubs or gallops Musculoskeletal: No joint or muscle tenderness Extremities: Non tender, no edema, peripheral pulses are present Neuro: Oriented, no tremors, no focal neurological deficits Skin: No rashes Results & Data Vital Signs (Past 12 Hours) Vital Signs Temp Pulse Pulse Resp BP Pulse Ox 05/01/19 07:59 36.5 C 71 18 123/68 97 05/01/19 07:32 57 L 05/01/19 04:17 36.6 C 68 20 154/64 H 96 05/01/19 03:29 62 05/01/19 00:20 37.0 C 68 20 131/63 92 Laboratory Results 05/01/19 05:28 04/30/19 05/01/19 07:43 05:28 WBC 11.89 H 9.44 RBC 3.59 L 3.61 L MCV 89.7 88.9 MCH 28.1 28.3 MCHC 31.4 L 31.8 L RDW Std Deviation 53.4 H 52.0 H RDW Coeff of Frank 16.3 H 16.0 H Plt Count 214 184 MPV 13.6 H 12.2 H (1) Acute on chronic renal failure Acute renal failure type: unspecified Chronic kidney disease stage: stage 4 (severe) Qualified Code(s): N17.9 - Acute kidney failure, unspecified; N18.4 - Chronic kidney disease, stage 4 (severe) (2) Hypertension Hypertension type: essential hypertension Qualified Code(s): I10 - Essential (primary) hypertension
--- NOTE | 2019-05-01 16:59 | Hospitalist Progress Note ---
Date of Service May 01, 2019 Assessment & Plan (1) GI bleed: GI bleed Anemia Mostly related with the combination of Plavix, aspirin and coumadin Hgb on admission 9.8 after received 1 unit PRBC at [facility] Hgb this morning 10.2 Coumadin has been on hold, will resume today Plavix was d/c by PCP 2 days ago Continue monitor H/H If hgb dropped below 8, will transfuse Case discussed with daughter and agreed with resume the coumadin, then if bleeding reoccurs will stop it Daughter said that pt was taking coumadin, plavis and aspirin Hgb has been stable and daughter agreed to hold on colonoscopy for now, but if bleeding reoccurs ok to eval for colonoscopy Afib Currently on NSR Rate controlled with metoprolol cardiology on board and further cardiac testing needed Recent ECHO on last admission at [facility] showed: Calculated LV ejection Fraction = 62% (bi-plane method of discs). There is a small sized inferior wall motion abnormality with Hypokinesis of the segments. The left ventricular diastolic function is moderately abnormal (grade II). Stable from cardiology standpoint B/L LE DVT Recently diagnosed in Feb On coumadin that has been on hold due to GI bleed He was also on plavix that was d/c 3 days ago Consider to resume coumadin if Hgb stable Had a bright red episode of BM today If GI bleed reoccurs, will consider to get IVC filter Consider vascular surgery consult if pt unable to tolerate coumadin Continue monitor DM type 2 BS elevated Hba1c 6.8 On lantus 10mg BID while in the hospital Continue novolog sliding scale Continue monitor BS LUCILLE on CKD Creatinine on admission 3.4, baseline close to 3 Creatinine 3.3 today Nephrology on board Continue gentle hydration Torsemide on hold Continue monitor BMP Hypokalemia K 2.9 today K replaced case discussed with Nephrology and recommended potassium supplement 40mg BID Monitor BMP Left back pain Xray showed no acute fracture or dislocation. Continue Lidocaine patch and Tylenol PRN DVT px on SCD due to GI bleeding Will resume coumadin Code Status Full code Disposition Plan to transition to SNF Patient daughter requesting updates from providers. Ms. Crystal Dave, contact #[phone]. Subjective Pt was seen and examined Lying in bed with no distress Pt said that her pain improved case discussed with daughter and provided update Denies any chest pain, palpitation and SOB Physical Exam Physical Exam: General- No acute distress Head- atraumatic Eyes- PERRL, EOMI, ENT- oropharynx clear Neck- supple, no JVD Lungs- No wheezing Heart- regular rhythm; +systolic murmur Abdomen- normal bowel sounds, soft, nontender Extremities- no calf tenderness Neuro- alert, oriented x 3; PERRL, EOMI; no facial palsy; no dysarthria Skin- warm & dry, +bruises in LE Results & Data ([facility]) Vital Signs (Past 12 Hours) Vital Signs Temp Pulse Pulse Resp BP BP Pulse Ox 05/01/19 15:49 36.7 C 54 L 18 148/57 H 93 05/01/19 11:07 36.6 C 80 18 131/64 96 05/01/19 07:59 36.5 C 71 18 123/68 97 05/01/19 07:32 57 L
[2019-05-01] MEDS: WARFARIN SOD 1 MG TAB PO SCH (18:14)
[2019-05-01] MEDS: ACETAMINOPHEN 325 MG TAB PO PRN ×2 (18:15→22:16)
[2019-05-01] MEDS: LIDOCAINE 5% 1 PATCH TD SCH (22:35)
[2019-05-02] MEDS: ALPRAZolam 0.25 MG TABLET PO PRN ×2 (02:37→22:21)
[2019-05-02] MEDS: LEVOTHYROXINE SODIUM 88 MCG TABLET PO SCH (05:56)
[2019-05-02 07:25] LABS: Hematocrit (blood only) 29.6 % (37-47); Hemoglobin 9.4 g/dL (12.0-16.0); Mean Corpuscular Hemoglobin 27.6 pg (25-34); Mean Corpuscular Hgb Conc 31.8 g/dL (32-36); Mean Corpuscular Volume 87.1 fL (80-100); Mean Platelet Volume 11.2 fL (7.4-10.4); Platelet Count 157 K/uL (130-400); RDW Coefficient of Variation 16.1 % (11.5-14.5); RDW Standard Deviation 51.2 fL (36.4-46.3); White Blood Count 7.24 K/uL (4.8-10.8)
[2019-05-02 07:33] LABS: INR 1.3 (0.9-1.1); Prothrombin Time 13.2 Seconds (9.0-12.0)
[2019-05-02 08:05] LABS: BUN Creatinine Ratio 33.1 (10-20); Calcium 7.9 mg/dl (8.5-10.1); Creatinine Clr Calc Pharmacy 10.5 ml/min; Est GFR (African American) 13.5; Est GFR (Non-African American) 11.6
[2019-05-02] MEDS: SERTRALINE HCL 50 MG TABLET PO SCH (09:19)
[2019-05-02] MEDS: PANTOprazole 40 MG TAB PO SCH (09:19)
[2019-05-02] MEDS: ROSUVASTATIN CALCIUM 20 MG TAB PO SCH (09:19)
[2019-05-02] MEDS: AMLODIPINE BESYLATE 5 MG TAB PO SCH (09:20)
[2019-05-02] MEDS: INSULIN GLARGINE SOLOSTAR 100 UNITS/ML 3 ML PEN SC SCH ×2 (09:22→22:15)
[2019-05-02] MEDS: INSULIN ASPART 100 UNITS/ML 3 ML PEN SC SCH ×4 (09:24→22:15)
[2019-05-02] MEDS: METOPROLOL TARTRATE 25 MG TAB PO SCH ×2 (09:26→22:14)
[2019-05-02 10:59] LABS: Appearance Urine Clear (Clear); Bacteria Urine Automated Negative (Negative); Bilirubin Urine Negative (Negative); Blood Urine Trace (Negative); Color Urine Yellow; Epithelial Cell Urine Auto >30 /lpf (0-5); Glucose Urine UA Negative (Negative); Ketones Urine Negative (Negative); Leukocyte Esterase Urine 1+ (Negative); Nitrite Urine Negative (Negative); RBC Urine Automated 0-4 /hpf (0-4); Specific Gravity Urine 1.017 (1.000-1.030); Urobilinogen Urine Negative (Negative); pH Urine 7.5 (4.5-7.5)
[2019-05-02 11:16] LABS: Protein Urine 2+ (Negative); Sulfosalicylic Acid Urine Positive (Negative)
--- NOTE | 2019-05-02 15:49 | Nephrology Progress Note ---
Date of Service May 02, 2019 Assessment & Plan (1) Acute on chronic renal failure: Creatinine a bit increased further at 3.4 today. BUN of 110s likely due to GI bleed. baseline 2.4-2.8. nonoliguric prerenal; chemistries acceptable as is volume status. -daily bmp -cont to hold diuretic (2) Hypertension: elevated but acceptable; on routine OP metoprolol and amlodipine; diuretics held and should ontinue to hold (3) Hypokalemia: improved after massive doses of K at admission (160 mEq) > may have been so low d/t use of high dose torsemide w/o K supplements; no report of diarrhea (but pt gives poor hx) -k 2.9 today. -no standing K currently and none needed (4) Anemia: Likely due to GI bleed. for reconsideration of colonoscopy if bleeding recurs; for now cautiously resuming coumadin; hgb has been steady (5) Back pain: points to her sacrum in describing it; XR negative for frx -cont lidocaine patch -monitor for occult bleeding given bruising/anemia Subjective seen on rounds this am at 0845; no complaints including not of back pain; had bright red bm yesterday; plan is resume coumadin and if bleed recurs consider stopping; no sob, no voiding c/o, no chest pain, no edema Review of Systems Review of Systems: All systems reviewed & are unremarkable except as noted in HPI & below Physical Exam Constitutional: well developed, well nourished and cooperative; no acute distress Eyes: EOM intact bilaterally ENMT: Ears: no external ear abnormality Nose: no external nose abnormality Mouth: + dry oral mucous membranes Neck: no nuchal rigidity Respiratory: normal respiratory effort Auscultation: lungs clear to auscultation bilaterally and + diminished lung sounds Cardiovascular: Rate/Rhythm: regular rate and regular rhythm Extremities: no edema Gastrointestinal (Abdomen): Inspection/Auscultation: normal bowel sounds; abdomen not distended Percussion/Palpation: abdomen soft; abdomen nontender Musculoskeletal: Extremities: strength 5/5 throughout Skin: no rashes, warm and dry + ecchymosis (7-10 ecchymoses L thigh each 3 cm diameter all recent; some R thigh too) Neurologic: awake Speech / Cognition: normal speech Motor/Sensory: + abnormal movement (weak) Psychiatric: Orientation: alert, oriented to person and oriented to place Speech: normal rate/rhythm/volume of speech Affect: euthymic affect Cognition: + recent memory not intact and + remote memory not intact Insight: + limited insight Results & Data Vital Signs (Past 12 Hours) Vital Signs Temp Pulse Resp BP BP Pulse Ox 05/02/19 15:22 36.6 C 57 L 19 154/69 H 95 05/02/19 11:12 36.4 C L 70 20 155/66 H 96 Laboratory Results 05/02/19 07:13 05/02/19 07:13 (1) Acute on chronic renal failure Acute renal failure type: unspecified Chronic kidney disease stage: stage 4 (severe) Qualified Code(s): N17.9 - Acute kidney failure, unspecified; N18.4 - Chronic kidney disease, stage 4 (severe) (2) Hypertension Hypertension type: essential hypertension Qualified Code(s): I10 - Essential (primary) hypertension
[2019-05-02] MEDS: WARFARIN SOD 1 MG TAB PO SCH (16:50)
--- NOTE | 2019-05-02 18:53 | Hospitalist Progress Note ---
Date of Service May 02, 2019 Assessment & Plan (1) GI bleed: GI bleed Anemia Mostly related with the combination of Plavix, aspirin and coumadin Hgb on admission 9.8 after received 1 unit PRBC at [facility] Hgb this morning 9.4 Continue coumadin Plavix was d/c by PCP 2 days ago Continue monitor H/H If hgb dropped below 8, will transfuse Case discussed with daughter and agreed with resume the coumadin, then if bleeding reoccurs will stop it Daughter said that pt was taking coumadin, plavis and aspirin Hgb has been stable and daughter agreed to hold on colonoscopy for now, but if bleeding reoccurs ok to eval for colonoscopy Afib Currently on NSR Rate controlled with metoprolol cardiology on board and further cardiac testing needed Recent ECHO on last admission at [place] showed: Calculated LV ejection Fraction = 62% (bi-plane method of discs). There is a small sized inferior wall motion abnormality with Hypokinesis of the segments. The left ventricular diastolic function is moderately abnormal (grade II). Stable from cardiology standpoint B/L LE DVT Recently diagnosed in Feb On coumadin that has been on hold due to GI bleed He was also on plavix that was d/c 3 days ago Consider to resume coumadin if Hgb stable Had a bright red episode of BM today If GI bleed reoccurs, will consider to get IVC filter Consider vascular surgery consult if pt unable to tolerate coumadin Continue monitor Continue coumadin 1mg Monitor hgb closely DM type 2 BS elevated Hba1c 6.8 On lantus 10mg BID while in the hospital Continue novolog sliding scale Continue monitor BS LUCILLE on CKD Creatinine on admission 3.4, baseline close to 3 Creatinine 3.4 today Nephrology on board Continue gentle hydration Torsemide on hold Continue monitor BMP Hypokalemia K 4 today case discussed with Nephrology and recommended potassium supplement 40mg BID, but will hold today Monitor BMP Left back pain Xray showed no acute fracture or dislocation. Continue Lidocaine patch and Tylenol PRN DVT px on SCD due to GI bleeding On coumadin Code Status Full code Disposition Plan to transition to SNF Patient daughter requesting updates from providers. Ms. Crystal Dave, contact #[phone]. Subjective Pt was seen and examined Lying in bed complaint of pain in her lower back She said that the pain medication helps Denies any chest pain, palpitation and SOB Physical Exam Physical Exam: General- No acute distress Head- atraumatic Eyes- PERRL, EOMI, ENT- oropharynx clear Neck- supple, no JVD Lungs- No wheezing Heart- regular rhythm; +systolic murmur Abdomen- normal bowel sounds, soft, nontender Extremities- no calf tenderness Neuro- alert, oriented x 3; PERRL, EOMI; no facial palsy; no dysarthria Skin- warm & dry, +bruises in LE Results & Data ([facility]) Vital Signs (Past 12 Hours) Vital Signs Temp Pulse Resp BP BP Pulse Ox 05/02/19 15:22 36.6 C 57 L 19 154/69 H 95 05/02/19 11:12 36.4 C L 70 20 155/66 H 96
[2019-05-02] MEDS: LIDOCAINE 5% 1 PATCH TD SCH (22:14)
[2019-05-02] MEDS: ACETAMINOPHEN 325 MG TAB PO PRN (22:21)
[2019-05-03] MEDS: LEVOTHYROXINE SODIUM 88 MCG TABLET PO SCH (06:19)
[2019-05-03 06:41] LABS: Hematocrit (blood only) 30.3 % (37-47); Hemoglobin 9.6 g/dL (12.0-16.0); Mean Corpuscular Hemoglobin 27.8 pg (25-34); Mean Corpuscular Hgb Conc 31.7 g/dL (32-36); Mean Corpuscular Volume 87.8 fL (80-100); Mean Platelet Volume 12.6 fL (7.4-10.4); Platelet Count 164 K/uL (130-400); RDW Coefficient of Variation 15.9 % (11.5-14.5); RDW Standard Deviation 51.3 fL (36.4-46.3); Red Blood Count 3.45 M/uL (4.2-5.4); White Blood Count 6.21 K/uL (4.8-10.8)
[2019-05-03 06:50] LABS: INR 1.2 (0.9-1.1); Prothrombin Time 12.3 Seconds (9.0-12.0)
[2019-05-03 07:14] LABS: BUN Creatinine Ratio 33.7 (10-20); Calcium 7.8 mg/dl (8.5-10.1); Creatinine Clr Calc Pharmacy 11.6 ml/min; Est GFR (African American) 15.1; Potassium 3.3 mmol/L (3.5-5.1)
[2019-05-03] MEDS ORDERED: HydrALAZINE HCL 20 MG/ML VIAL IV PRN (08:19)
[2019-05-03] MEDS: INSULIN ASPART 100 UNITS/ML 3 ML PEN SC SCH ×4 (08:48→20:42)
[2019-05-03] MEDS: ROSUVASTATIN CALCIUM 20 MG TAB PO SCH (08:54)
[2019-05-03] MEDS: AMLODIPINE BESYLATE 5 MG TAB PO SCH (08:55)
[2019-05-03] MEDS: METOPROLOL TARTRATE 25 MG TAB PO SCH ×2 (08:55→20:42)
[2019-05-03] MEDS: PANTOprazole 40 MG TAB PO SCH (08:56)
[2019-05-03] MEDS: SERTRALINE HCL 50 MG TABLET PO SCH (08:56)
[2019-05-03] MEDS: POTASSIUM CHLORIDE 20 MEQ TABCR PO SCH (10:47)
[2019-05-03] MEDS: POTASSIUM CHLORIDE 20 MEQ in DEXTROSE 5% 1,000 ML IV SCH ×2 (10:55→23:54)
[2019-05-03] MEDS: INSULIN GLARGINE SOLOSTAR 100 UNITS/ML 3 ML PEN SC SCH ×3 (11:01→22:19)
--- NOTE | 2019-05-03 11:12 | Nephrology Progress Note ---
Date of Service May 03, 2019 Assessment & Plan (1) Acute on chronic renal failure: Creatinine down slightly to 3.1 today, plateau'd in low 3s. BUN of 100s likely due to GI bleed. baseline 2.4-2.8. nonoliguric prerenal; chemistries acceptable as is volume status. -daily bmp -cont to hold diuretic -started D5W w/ 20 mEq/ L at 80 mL hourly (2) Hypertension: elevated but acceptable; on routine OP metoprolol and amlodipine; diuretics held and should continue to hold (3) Hypokalemia: improved after massive doses of K at admission (160 mEq) > may have been so low d/t use of high dose torsemide w/o K supplements; no report of diarrhea (but pt gives poor hx) -k 3.3 today. -started 20 mEq daily K today and starting on D5W w/ 20 mEq/L K at 80 mL hourly (4) Anemia: Likely due to GI bleed. for reconsideration of colonoscopy if bleeding recurs; for now cautiously resuming coumadin; hgb has been steady Subjective seen on rounds this am 0910; no sob; marked fatigue and really no other concerns; states tolerating po and PT. no n/v, no rash, no voiding c/o. Review of Systems Review of Systems: All systems reviewed & are unremarkable except as noted in HPI & below Physical Exam Constitutional: well developed, well nourished and cooperative; no acute di stress ambulating w/ walker w/ asst Eyes: EOM intact bilaterally ENMT: Ears: no external ear abnormality Nose: no external nose abnormality Mouth: + dry oral mucous membranes Neck: no nuchal rigidity Respiratory: normal respiratory effort Auscultation: lungs clear to auscultation bilaterally and + diminished lung sounds Cardiovascular: Rate/Rhythm: regular rate and regular rhythm Extremities: no edema Gastrointestinal (Abdomen): Inspection/Auscultation: normal bowel sounds; abdomen not distended Percussion/Palpation: abdomen soft; abdomen nontender Musculoskeletal: Extremities: strength 5/5 throughout Skin: no rashes, warm and dry Neurologic: awake Speech / Cognition: normal speech Motor/Sensory: + abnormal movement (weak) Psychiatric: Orientation: alert, oriented to person and oriented to place Speech: normal rate/rhythm/volume of speech Affect: euthymic affect Cognition: + recent memory not intact and + remote memory not intact Insight: + limited insight Results & Data Vital Signs (Past 12 Hours) Vital Signs Temp Pulse Pulse Pulse Resp BP Pulse Ox 05/03/19 07:40 36.6 C 71 18 181/74 H 96 05/03/19 03:47 36.5 C 65 17 157/70 H 94 05/02/19 23:46 72 05/02/19 23:31 36.6 C 67 15 173/72 H 95 Laboratory Results 05/03/19 06:18 05/03/19 06:18 (1) Acute on chronic renal failure Acute renal failure type: unspecified Chronic kidney disease stage: stage 4 (severe) Qualified Code(s): N17.9 - Acute kidney failure, unspecified; N18.4 - Chronic kidney disease, stage 4 (severe) (2) Hypertension Hypertension type: essential hypertension Qualified Code(s): I10 - Essential (primary) hypertension
[2019-05-03] MEDS: WARFARIN SOD 2 MG TAB PO SCH (18:23)
--- NOTE | 2019-05-03 19:29 | Hospitalist Progress Note ---
Date of Service May 03, 2019 Assessment & Plan (1) GI bleed: GI bleed Anemia Mostly related with the combination of Plavix, aspirin and coumadin Hgb on admission 9.8 after received 1 unit PRBC at [facility] Hgb this morning 9.6 Continue coumadin Plavix was d/c by PCP 2 days ago Continue monitor H/H If hgb dropped below 8, will transfuse Case discussed with daughter and agreed with resume the coumadin, then if bleeding reoccurs will stop it Daughter said that pt was taking coumadin, plavis and aspirin Hgb has been stable and daughter agreed to hold on colonoscopy for now, but if bleeding reoccurs ok to eval for colonoscopy Afib Currently on NSR Rate controlled with metoprolol cardiology on board and further cardiac testing needed Recent ECHO on last admission at [place] showed: Calculated LV ejection Fraction = 62% (bi-plane method of discs). There is a small sized inferior wall motion abnormality with Hypokinesis of the segments. The left ventricular diastolic function is moderately abnormal (grade II). Stable from cardiology standpoint B/L LE DVT Recently diagnosed in Feb On coumadin that has been on hold due to GI bleed He was also on plavix that was d/c 3 days ago Consider to resume coumadin if Hgb stable Had a bright red episode of BM today If GI bleed reoccurs, will consider to get IVC filter Consider vascular surgery consult if pt unable to tolerate coumadin Continue monitor Continue coumadin 1mg Monitor hgb closely DM type 2 BS elevated Hba1c 6.8 On lantus 10mg BID while in the hospital Continue novolog sliding scale Continue monitor BS LUCILLE on CKD Creatinine on admission 3.4, baseline close to 3 Creatinine 3.1 today Nephrology on board Continue gentle hydration Torsemide on hold Continue monitor BMP Hypokalemia K 3.3 today case discussed with Nephrology and recommended potassium supplement 20mg daily Monitor BMP Left back pain Xray showed no acute fracture or dislocation. Continue Lidocaine patch and Tylenol PRN DVT px on SCD due to GI bleeding On coumadin Code Status Full code Disposition Plan to transition to SNF Patient daughter requesting updates from providers. Ms. Crystal Dave, contact #[phone]. Subjective Pt was seen and examined Lying in bed with no distress Pt said that her pain improves denies any new complaints Physical Exam Physical Exam: General- No acute distress Head- atraumatic Eyes- PERRL, EOMI, ENT- oropharynx clear Neck- supple, no JVD Lungs- No wheezing Heart- regular rhythm; +systolic murmur Abdomen- normal bowel sounds, soft, nontender Extremities- no calf tenderness Neuro- alert, oriented x 3; PERRL, EOMI; no facial palsy; no dysarthria Skin- warm & dry, +bruises in LE Results & Data ([facility]) Vital Signs (Past 12 Hours) Vital Signs Temp Pulse Pulse Resp BP Pulse Ox 05/03/19 16:00 61 05/03/19 15:38 36.9 C 59 L 18 160/75 H 95 05/03/19 11:33 36.4 C L 63 18 170/67 H 96 05/03/19 08:00 62 05/03/19 07:40 36.6 C 71 18 181/74 H 96
[2019-05-03] MEDS: LIDOCAINE 5% 1 PATCH TD SCH (20:41)
[2019-05-03] MEDS: ACETAMINOPHEN 325 MG TAB PO PRN (22:37)
[2019-05-03] MEDS: ALPRAZolam 0.25 MG TABLET PO PRN (22:39)
[2019-05-04] MEDS: LEVOTHYROXINE SODIUM 88 MCG TABLET PO SCH (06:38)
[2019-05-04 07:48] LABS: INR 1.2 (0.9-1.1)
[2019-05-04] MEDS: METOPROLOL TARTRATE 25 MG TAB PO SCH ×2 (08:56→20:24)
[2019-05-04] MEDS: SERTRALINE HCL 50 MG TABLET PO SCH (08:57)
[2019-05-04] MEDS: POTASSIUM CHLORIDE 20 MEQ TABCR PO SCH (08:57)
[2019-05-04] MEDS: ROSUVASTATIN CALCIUM 20 MG TAB PO SCH (08:58)
[2019-05-04] MEDS: AMLODIPINE BESYLATE 5 MG TAB PO SCH (08:58)
[2019-05-04] MEDS: PANTOprazole 40 MG TAB PO SCH (08:58)
[2019-05-04] MEDS: INSULIN ASPART 100 UNITS/ML 3 ML PEN SC SCH ×4 (09:35→21:04)
[2019-05-04] MEDS: INSULIN GLARGINE SOLOSTAR 100 UNITS/ML 3 ML PEN SC SCH ×2 (09:36→21:05)
[2019-05-04 10:58] LABS: BUN Creatinine Ratio 34.2 (10-20); Calcium 7.7 mg/dl (8.5-10.1); Creatinine Clr Calc Pharmacy 13.8 ml/min; Est GFR (African American) 18.6; Potassium 3.6 mmol/L (3.5-5.1)
[2019-05-04] MEDS: POTASSIUM CHLORIDE 20 MEQ in DEXTROSE 5% 1,000 ML IV SCH (12:13)
[2019-05-04] MEDS: SODIUM CHLORIDE 0.9% 1000ML 1,000 ML IV SCH (15:06)
[2019-05-04] MEDS: WARFARIN SOD 2 MG TAB PO SCH (17:05)
[2019-05-04] MEDS ORDERED: Nursing to Pharmacy Communication ONE (17:30)
--- NOTE | 2019-05-04 17:40 | Hospitalist Progress Note ---
Date of Service May 04, 2019 Assessment & Plan (1) GI bleed: GI bleed Secondary to use of Plavix, aspirin and coumadin Hgb on admission 9.8 after received 1 unit PRBC at [facility] Continue coumadin Plavix was d/c by PCP 2 days ago and will not restart Case discussed with daughter and agreed with resume the coumadin, then if bleeding reoccurs will stop it Hgb has been stable and daughter agreed to hold on colonoscopy for now, but if bleeding reoccurs ok to eval for colonoscopy Hemoglobin remains stable at 9.4 Afib Currently on NSR Rate controlled with metoprolol cardiology on board and further cardiac testing needed Recent ECHO on last admission at [place] showed: Calculated LV ejection Fraction = 62% (bi-plane method of discs). There is a small sized inferior wall motion abnormality with Hypokinesis of the segments. The left ventricular diastolic function is mo derately abnormal (grade II). Stable from cardiology standpoint Rate remains controlled B/L LE DVT Recently diagnosed in Feb On coumadin that has been on hold due to GI bleed He was also on plavix that was d/c 3 days ago If GI bleed reoccurs, will consider to get IVC filter Has been tolerating Coumadin Will check INR tomorrow DM type 2 BS elevated Hba1c 6.8 On lantus 10mg BID while in the hospital Continue novolog sliding scale Continue monitor BS LUCILLE on CKD Creatinine on admission 3.4, baseline close to 3 Creatinine 3.1 today Nephrology on board Continue gentle hydration Torsemide on hold Creatinine is better at 2.6-1 05/04/2019 Hypokalemia K 3.3 today case discussed with Nephrology and recommended potassium supplement 20mg daily Getting potassium supplement Monitor PRP Left back pain Xray showed no acute fracture or dislocation. Continue Lidocaine patch and Tylenol PRN DVT px on SCD due to GI bleeding On coumadin Code Status Full code Disposition Plan to transition to SNF Patient daughter requesting updates from providers. Ms. Crystal Dave, contact #[phone]. Subjective 05/04/2019 The patient was seen and examined in medical floor She remains generally weak and lethargic but denies any other symptoms Denies any chest pain, palpitation, any abdominal pain, nausea and/or vomiting Review of Systems Review of Systems: All systems reviewed and are unremarkable except as noted below Neurologic: + generalized weakness Physical Exam Physical Exam: Lying in bed comfortably Constitutional: well developed and well nourished; no acute distress and not ill appearing Eyes: PERRL, conjunctivae normal, anicteric sclerae ENMT: external ear and nose normal, oropharynx normal Neck: trachea midline, no thyromegaly Respiratory: normal respiratory effort; no respiratory distress Auscultation: lungs clear to auscultation bilaterally and + crackles (Minimal crackles at the bases) Cardiovascular: Rate/Rhythm: + abnormal rate and + abnormal rhythm Heart Sounds: no murmur Gastrointestinal (Abdomen): Inspection/Auscultation: abdomen normal to inspection and normal bowel sounds Percussion/Palpation: abdomen soft Musculoskeletal: No acute arthritis involving any joints Neurologic: moves all extremities Lymphatic: no cervical or axillary lymphadenopathy Results & Data ([facility]) Vital Signs (Past 12 Hours) Vital Signs Temp Pulse Pulse Resp BP Pulse Ox 05/04/19 16:00 51 L 05/04/19 15:20 36.4 C L 58 L 16 172/67 H 98 05/04/19 11:18 36.8 C 54 L 16 161/69 H 98 05/04/19 07:17 36.5 C 62 16 165/74 H 96 Laboratory Results Short CBC 05/04/19 Range/Units 07:07 Hgb 9.4 L (12.0-16.0) g/dL BMP 05/04/19 07:07 Sodium 134 L Potassium 3.6 Chloride 101 Carbon Dioxide 25 BUN 90 H Creatinine 2.62 H D Glucose 159 H Calcium 7.7 L Medications Administered Current Inpatient Medications Acetaminophen (Tylenol) 650 mg PO Q4H PRN PRN Reason: Pain or Fever Stop: 05/29/19 02:26 Last Admin: 05/03/19 22:37 Dose: 650 mg Documented by: Alprazolam (Xanax) 0.25 mg PO DAILY PRN PRN Reason: Anxiety Stop: 05/29/19 03:24 Last Admin: 05/03/19 22:39 Dose: 0.25 mg Documented by: Amlodipine Besylate (Norvasc) 10 mg PO DAILY DECLAN Stop: 05/29/19 03:24 Last Admin: 05/04/19 08:58 Dose: 10 mg Documented by: Dextrose (Dextrose 50%) 25 - 50 ml IV UD PRN; Protocol PRN Reason: Hypoglycemia Protocol Stop: 05/29/19 03:25 Glucagon (Glucagen) 1 mg SQ UD PRN; Protocol PRN Reason: Hypoglycemia Protocol Stop: 05/29/19 03:25 Glucose (Dex4 Glucose) 4 - 8 tabs PO UD PRN; Protocol PRN Reason: Hypoglycemia Protocol Stop: 05/29/19 03:25 Glucose (Glucose 40%) 15 - 30 gm PO UD PRN; Protocol PRN Reason: Hypoglycemia Protocol Stop: 05/29/19 03:25 Hydralazine HCl (Hydralazine Hcl) 5 mg IV Q6H PRN PRN Reason: SBP above 170 Stop: 06/02/19 08:18 Potassium Chloride 20 meq/ (Dextrose) 1,010 mls @ 80 mls/hr IV .[id number] [facility] Stop: 06/02/19 09:29 Last Admin: 05/04/19 12:13 Dose: 80 mls/hr Documented by: Sodium Chloride (Nss 1000ml) 1,000 mls @ 80 mls/hr IV .[id number] [facility] Stop: 06/03/19 13:59 Last Admin: 05/04/19 15:06 Dose: 80 mls/hr Documented by: Insulin Aspart (Novolog Flexpen) 0 units SC ACHS [facility] Stop: 05/29/19 03:29 Last Admin: 05/04/19 12:52 Dose: 8 units Documented by: Insulin Glargine (Lantus Solostar Pen) 8 units SC BID [facility] Stop: 06/02/19 20:59 Last Admin: 05/04/19 09:36 Dose: 8 units Documented by: Levothyroxine Sodium (Synthroid) 88 mcg PO DAILYBB [facility] Stop: 05/29/19 06:29 Last Admin: 05/04/19 06:38 Dose: 88 mcg Documented by: Lidocaine (Lidoderm 5%) 1 patch TD Q24H [facility] Stop: 05/29/19 20:29 Last Admin: 05/03/19 20:41 Dose: 1 patch Documented by: Metoprolol Tartrate (Lopressor) 12.5 mg PO BID [facility] Stop: 05/31/19 04:59 Last Admin: 05/04/19 08:56 Dose: 12.5 mg Documented by: Miscellaneous (Carbohydrates For Hypoglycemia) 15 - 30 gm PO UD PRN PRN Reason: Hypoglycemia Protocol Stop: 05/29/19 03:25 Miscellaneous (Remove Lidoderm Patch) 1 ea N/A DAILY@0830 [facility] Stop: 05/30/19 08:29 Last Admin: 05/04/19 09:38 Dose: 1 ea Documented by: Miscellaneous Information (Nursing To Pharmacy Communication) 1 ea N/A ONE ONE Stop: 05/04/19 17:31 Nitroglycerin (Nitrostat) 0.4 mg SL UD PRN PRN Reason: Chest Pain Stop: 05/29/19 02:26 Pantoprazole Sodium (Protonix) 40 mg PO DAILY [facility] Stop: 05/29/19 08:59 Last Admin: 05/04/19 08:58 Dose: 40 mg Documented by: Polyethylene Glycol (Miralax Powder Packet) 17 gm PO DAILY PRN PRN Reason: Constipation Stop: 05/29/19 03:24 Potassium Chloride (Klor-Con M20) 20 meq PO DAILY [facility] Stop: 06/02/19 08:59 Last Admin: 05/04/19 08:57 Dose: 20 meq Documented by: Rosuvastatin Calcium (Crestor) 40 mg PO DAILY [facility] Stop: 05/29/19 08:59 Last Admin: 05/04/19 08:58 Dose: 40 mg Documented by: Sertraline HCl (Zoloft) 50 mg PO DAILY [facility] Stop: 05/29/19 08:59 Last Admin: 05/04/19 08:57 Dose: 50 mg Documented by: Warfarin Sodium (Coumadin) 2 mg PO DAILY@1600 [facility] Stop: 06/02/19 15:59 Last Admin: 05/04/19 17:05 Dose: 2 mg Documented by:
--- NOTE | 2019-05-04 19:22 | Nephrology Progress Note ---
Date of Service May 04, 2019 Assessment & Plan (1) Acute on chronic renal failure: Creatinine down to 2.6 today, after plateau'd in low 3s. BUN of 100s likely due to GI bleed. baseline 2.4-2.8. nonoliguric prerenal; chemistries acceptable as is volume status. -daily bmp -cont to hold diuretic -started on NS today > will monitor bp; no K in fluids (2) Hypertension: elevated but acceptable; on routine OP metoprolol and amlodipine; diuretics held and should continue to hold (3) Hypokalemia: improved after massive doses of K at admission (160 mEq) > may have been so low d/t use of high dose torsemide w/o K supplements; no report of diarrhea (but pt gives poor hx) -k 3.6 today. -cont 20 mEq daily K -daily bmp shivani off of ivf and w/ need to restart diuretic at some point (4) Anemia: Likely due to GI bleed. for reconsideration of colonoscopy if bleeding recurs; for now cautiously resuming coumadin; hgb has been steady Subjective seen on rounds at 1015; no c/o; slept well. no n/v; telling me she wishes "to go home before they send me anywhere else" no sob; no voiding c/o Review of Systems Review of Systems: All systems reviewed & are unremarkable except as noted in HPI & below Physical Exam Constitutional: well developed, well nourished and cooperative; no acute distress (on ra, maneuvers readily for exam) Eyes: EOM intact bilaterally ENMT: Ears: no external ear abnormality Nose: no external nose abnormality Mouth: + dry oral mucous membranes Neck: no nuchal rigidity Respiratory: normal respiratory effort Auscultation: lungs clear to auscultation bilaterally and + diminished lung sounds Cardiovascular: Rate/Rhythm: regular rate and regular rhythm Extremities: no edema Gastrointestinal (Abdomen): Inspection/Auscultation: normal bowel sounds; abdomen not distended Percussion/Palpation: abdomen soft; abdomen nontender Musculoskeletal: Extremities: strength 5/5 throughout Skin: no rashes, warm and dry Neurologic: awake Speech / Cognition: normal speech Motor/Sensory: + abnormal movement (weak) Psychiatric: Orientation: alert, oriented to person and oriented to place Speech: normal rate/rhythm/volume of speech Affect: euthymic affect Cognition: + recent memory not intact and + remote memory not intact Insight: + limited insight Results & Data Vital Signs (Past 12 Hours) Vital Signs Temp Pulse Pulse Resp BP Pulse Ox 05/04/19 16:00 51 L 05/04/19 15:20 36.4 C L 58 L 16 172/67 H 98 05/04/19 11:18 36.8 C 54 L 16 161/69 H 98 Laboratory Results 05/04/19 07:07 05/04/19 07:07 (1) Acute on chronic renal failure Acute renal failure type: unspecified Chronic kidney disease stage: stage 4 (severe) Qualified Code(s): N17.9 - Acute kidney failure, unspecified; N18.4 - Chronic kidney disease, stage 4 (severe) (2) Hypertension Hypertension type: essential hypertension Qualified Code(s): I10 - Essential (primary) hypertension
[2019-05-04] MEDS: LIDOCAINE 5% 1 PATCH TD SCH (19:40)
[2019-05-04] MEDS: ALPRAZolam 0.25 MG TABLET PO PRN (20:21)
[2019-05-04] MEDS: ACETAMINOPHEN 325 MG TAB PO PRN (22:41)
[2019-05-04] MEDS ORDERED: cloNIDine HCL 0.1 MG TAB PO ONE (23:29)
[2019-05-05] MEDS: SODIUM CHLORIDE 0.9% 1000ML 1,000 ML IV SCH (03:40)
[2019-05-05] MEDS: LEVOTHYROXINE SODIUM 88 MCG TABLET PO SCH (06:11)
[2019-05-05] MEDS: METOPROLOL TARTRATE 25 MG TAB PO SCH (08:04)
[2019-05-05] MEDS: POTASSIUM CHLORIDE 20 MEQ TABCR PO SCH (08:05)
[2019-05-05] MEDS: AMLODIPINE BESYLATE 5 MG TAB PO SCH (08:06)
[2019-05-05] MEDS: ROSUVASTATIN CALCIUM 20 MG TAB PO SCH (08:06)
[2019-05-05] MEDS: PANTOprazole 40 MG TAB PO SCH (08:06)
[2019-05-05] MEDS: SERTRALINE HCL 50 MG TABLET PO SCH (08:07)
[2019-05-05] MEDS: INSULIN GLARGINE SOLOSTAR 100 UNITS/ML 3 ML PEN SC SCH (08:08)
[2019-05-05] MEDS: INSULIN ASPART 100 UNITS/ML 3 ML PEN SC SCH ×2 (08:11→12:08)
[2019-05-05 08:22] LABS: Basophils # (auto) 0.01 K/uL (0-0.2); Basophils % (auto) 0.2 %; Eosinophils # (auto) 0.44 K/uL (0-0.5); Eosinophils % (auto) 7.4 %; Hematocrit (blood only) 32.1 % (37-47); Hemoglobin 10.1 g/dL (12.0-16.0); Immature Granulocytes # (auto) 0.02 K/uL (0.00-0.02); Immature Granulocytes % (auto) 0.3 %; Lymphocytes % (auto) 20.1 %; Mean Corpuscular Hemoglobin 27.7 pg (25-34); Mean Corpuscular Hgb Conc 31.5 g/dL (32-36); Mean Corpuscular Volume 87.9 fL (80-100); Mean Platelet Volume 12.6 fL (7.4-10.4); Monocytes # (auto) 0.61 K/uL (0.11-0.59); Monocytes % (auto) 10.2 %; Neutrophils # (auto) 3.68 K/uL (1.4-6.5); Neutrophils % (auto) 61.8 %; Platelet Count 182 K/uL (130-400); RDW Coefficient of Variation 15.5 % (11.5-14.5); RDW Standard Deviation 50.2 fL (36.4-46.3); Red Blood Count 3.65 M/uL (4.2-5.4); White Blood Count 5.96 K/uL (4.8-10.8)
[2019-05-05 08:32] LABS: INR 1.2 (0.9-1.1); Prothrombin Time 12.4 Seconds (9.0-12.0)
[2019-05-05 09:01] LABS: BUN Creatinine Ratio 31.2 (10-20); Calcium 8.1 mg/dl (8.5-10.1); Creatinine Clr Calc Pharmacy 15.2 ml/min; Est GFR (African American) 20.4; Est GFR (Non-African American) 17.6; Magnesium 2.3 mg/dl (1.8-2.4); Potassium 3.7 mmol/L (3.5-5.1)
--- NOTE | 2019-05-05 12:20 | Hospitalist Progress Note ---
Date of Service May 05, 2019 Assessment & Plan (1) GI bleed: GI bleed Secondary to use of Plavix, aspirin and coumadin Hgb on admission 9.8 after received 1 unit PRBC at [facility] Continue coumadin Plavix was d/c by PCP 2 days ago and will not restart Case discussed with daughter and agreed with resume the coumadin, then if bleeding reoccurs will stop it Hgb has been stable and daughter agreed to hold on colonoscopy for now, but if bleeding reoccurs ok to eval for colonoscopy Hemoglobin remains stable at 9.4 and at 10.1 as of 05/05/2019 Afib Currently on NSR Rate controlled with metoprolol cardiology on board and further cardiac testing needed Recent ECHO on last admission at [facility] showed: Calculated LV ejection Fraction = 62% (bi-plane method of discs). There is a small sized inferior wall motion abnormality with Hypokinesis of the segments. The left ventricular diastolic function is moderately abnormal (grade II). Stable from cardiology standpoint Rate remains controlled We will increase the dose of metoprolol to 25 twice daily B/L LE DVT Recently diagnosed in Feb On coumadin that has been on hold due to GI bleed He was also on plavix that was d/c 3 days ago If GI bleed reoccurs, will consider to get IVC filter Has been tolerating Coumadin Will check INR tomorrow-1.21 05/05/2019 We will go slow due to recent GI bleed DM type 2 BS elevated Hba1c 6.8 On lantus 10mg BID while in the hospital Continue novolog sliding scale Continue monitor BS LUCILLE on CKD Creatinine on admission 3.4, baseline close to 3 Creatinine 3.1 today Nephrology on board Continue gentle hydration Torsemide on hold Creatinine is better at 2.6-1 05/04/2019 Creatinine seems to be at her baseline Advised more fluid intake orally Hypokalemia K 3.3 today case discussed with Nephrology and recommended potassium supplement 20mg daily Getting potassium supplement Monitor PRP Left back pain Xray showed no acute fracture or dislocation. Continue Lidocaine patch and Tylenol PRN DVT px on SCD due to GI bleeding On coumadin Code Status Full code Disposition Plan to transition to SNF Patient daughter requesting updates from providers. Brock Crystal Tenzin, contact #[phone]. Like to go to [facility] this afternoon (2) Acute blood loss anemia: Secondary to above Subjective 05/04/2019 The patient was seen and examined in medical floor She remains generally weak and lethargic but denies any other symptoms Denies any chest pain, palpitation, any abdominal pain, nausea and/or vomiting 05/05/2019 The patient was seen and examined in medical floor She has generalized weakness but denies any other symptoms Denies any shortness of breath, any palpitation, any abdominal pain, nausea and or vomiting Leg swelling is much better Review of Systems Review of Systems: All systems reviewed and are unremarkable except as noted below Neurologic: + generalized weakness Physical Exam Physical Exam: Lying in bed comfortably Constitutional: well developed and well nourished; no acute distress and not ill appearing Eyes: PERRL, conjunctivae normal, anicteric sclerae ENMT: external ear and nose normal, oropharynx normal Neck: trachea midline, no thyromegaly Respiratory: normal respiratory effort; no respiratory distress Auscultation: lungs clear to auscultation bilaterally and + crackles (Minimal crackles at the bases) Cardiovascular: Rate/Rhythm: + abnormal rate and + abnormal rhythm Heart Sounds: no murmur Gastrointestinal (Abdomen): Inspection/Auscultation: abdomen normal to inspection and normal bowel sounds Percussion/Palpation: abdomen soft Musculoskeletal: No acute arthritis in any joints Neurologic: moves all extremities Lymphatic: no cervical or axillary lymphadenopathy Results & Data ([facility]) Vital Signs (Past 12 Hours) Vital Signs Temp Pulse Pulse Pulse Resp BP BP 05/05/19 11:44 36.5 C 90 20 172/76 H 05/05/19 08:05 36.9 C 68 20 159/82 H 05/05/19 06:33 61 05/05/19 03:24 36.6 C 71 20 05/05/19 03:17 151/72 H Pulse Ox 05/05/19 11:44 97 05/05/19 08:05 95 05/05/19 06:33 05/05/19 03:24 95 05/05/19 03:17 Laboratory Results Short CBC 05/05/19 Range/Units 07:58 WBC 5.96 (4.8-10.8) K/uL Hgb 10.1 L (12.0-16.0) g/dL Hct 32.1 L (37-47) % Plt Count 182 (130-400) K/uL [facility] 05/05/19 07:58 Sodium 137 Potassium 3.7 Chloride 105 Carbon Dioxide 23 BUN 76 H Creatinine 2.42 H Glucose 109 H Calcium 8.1 L Medications Administered Current Inpatient Medications Acetaminophen (Tylenol) 650 mg PO Q4H PRN PRN Reason: Pain or Fever Stop: 05/29/19 02:26 Last Admin: 05/04/19 22:41 Dose: 650 mg Documented by: Alprazolam (Xanax) 0.25 mg PO DAILY PRN PRN Reason: Anxiety Stop: 05/29/19 03:24 Last Admin: 05/04/19 20:21 Dose: 0.25 mg Documented by: Amlodipine Besylate (Norvasc) 10 mg PO DAILY [facility] Stop: 05/29/19 03:24 Last Admin: 05/05/19 08:06 Dose: 10 mg Documented by: Dextrose (Dextrose 50%) 25 - 50 ml IV UD PRN; Protocol PRN Reason: Hypoglycemia Protocol Stop: 05/29/19 03:25 Glucagon (Glucagen) 1 mg SQ UD PRN; Protocol PRN Reason: Hypoglycemia Protocol Stop: 05/29/19 03:25 Glucose (Dex4 Glucose) 4 - 8 tabs PO UD PRN; Protocol PRN Reason: Hypoglycemia Protocol Stop: 05/29/19 03:25 Glucose (Glucose 40%) 15 - 30 gm PO UD PRN; Protocol PRN Reason: Hypoglycemia Protocol Stop: 05/29/19 03:25 Hydralazine HCl (Hydralazine Hcl) 5 mg IV Q6H PRN PRN Reason: SBP above 170 Stop: 06/02/19 08:18 Sodium Chloride (Nss 1000ml) 1,000 mls @ 80 mls/hr IV .[id number] [facility] Stop: 06/03/19 13:59 Last Admin: 05/05/19 03:40 Dose: 80 mls/hr Documented by: Insulin Aspart (Novolog Flexpen) 0 units SC ACHS [facility] Stop: 05/29/19 03:29 Last Admin: 05/05/19 12:08 Dose: 3 units Documented by: Insulin Glargine (Lantus Solostar Pen) 8 units SC BID [facility] Stop: 06/02/19 20:59 Last Admin: 05/05/19 08:08 Dose: 8 units Documented by: Levothyroxine Sodium (Synthroid) 88 mcg PO DAILYBB [facility] Stop: 05/29/19 06:29 Last Admin: 05/05/19 06:11 Dose: 88 mcg Documented by: Lidocaine (Lidoderm 5%) 1 patch TD Q24H [facility] Stop: 05/29/19 20:29 Last Admin: 05/04/19 19:40 Dose: 1 patch Documented by: Metoprolol Tartrate (Lopressor) 25 mg PO BID [facility] Stop: 06/04/19 20:59 Metoprolol Tartrate (Lopressor) 25 mg PO ONE ONE Stop: 05/05/19 14:50 Miscellaneous (Carbohydrates For Hypoglycemia) 15 - 30 gm PO UD PRN PRN Reason: Hypoglycemia Protocol Stop: 05/29/19 03:25 Miscellaneous (Remove Lidoderm Patch) 1 ea N/A DAILY@0830 [facility] Stop: 05/30/19 08:29 Last Admin: 05/05/19 09:18 Dose: 1 ea Documented by: Nitroglycerin (Nitrostat) 0.4 mg SL UD PRN PRN Reason: Chest Pain Stop: 05/29/19 02:26 Pantoprazole Sodium (Protonix) 40 mg PO DAILY [facility] Stop: 05/29/19 08:59 Last Admin: 05/05/19 08:06 Dose: 40 mg Documented by: Polyethylene Glycol (Miralax Powder Packet) 17 gm PO DAILY PRN PRN Reason: Constipation Stop: 05/29/19 03:24 Last Admin: 05/05/19 08:16 Dose: 17 gm Documented by: Potassium Chloride (Klor-Con M20) 20 meq PO DAILY [facility] Stop: 06/02/19 08:59 Last Admin: 05/05/19 08:05 Dose: 20 meq Documented by: Rosuvastatin Calcium (Crestor) 40 mg PO DAILY [facility] Stop: 05/29/19 08:59 Last Admin: 05/05/19 08:06 Dose: 40 mg Documented by: Sertraline HCl (Zoloft) 50 mg PO DAILY [facility] Stop: 05/29/19 08:59 Last Admin: 05/05/19 08:07 Dose: 50 mg Documented by: Warfarin Sodium (Coumadin) 2 mg PO DAILY@1600 [facility] Stop: 06/02/19 15:59 Last Admin: 05/04/19 17:05 Dose: 2 mg Documented by:
[2019-05-05] MEDS ORDERED: METOPROLOL TARTRATE 25 MG TAB PO ONE (14:49)
[2019-05-05] MEDS: WARFARIN SOD 2 MG TAB PO SCH (15:28)
[2019-05-05] MEDS ORDERED: METOPROLOL TARTRATE 25 MG TAB PO SCH (21:00)
--- NOTE | 2019-05-06 17:42 | Discharge Summary ---
Date of Service May 06, 2019 Admission HPI Per Admitting Provider History obtained from patient, family, and records. History somewhat limited from patient due to hearing impairment. Medical history significant for PAF, hypertension, hyperlipidemia, PVD status post surgery as per records, recent LE DVT on Coumadin, DM 2, insulin requiring, CRI (baseline creatinine 2.5-3), chronic anemia (baseline hemoglobin 8.6, 03/2019), history diverticulosis, mood disorder, possible dementia as per records. Recent confinement [facility] March 14-2018 for acute bilateral lower extremity DVT, ARF on CRI. Paroxysmal atrial fibrillation on EKG noted during confinement. TTE during confinement : Calculated LV ejection Fraction = 62% (bi-plane method of discs). There is a small sized inferior wall motion abnormality with hypokinesis of the segments. The left ventricular diastolic function is moderately abnormal (grade II). The left atrium is mildly enlarged. There is aortic valve sclerosis without stenosis. The right atrial size is normal. The right ventricular cavity size is normal (basal dimension < 4.2 cm RV apical 4 chamber view). The right ventricular systolic function is normal as assessed by tricuspid annular plane systolic excursion (TAPSE) (normal >1.7 cm). Trivial tricuspid regurgitation is present. The signal is inadequate to calculate pulmonary artery systolic pressure. Patient discharged to [facility] rehab facility on Coumadin Rx for lower extremity DVT. Kidney function back to baseline on discharge. Two [facility] ER visits last month for epistaxis. Patient discharge home from rehab facility 2 weeks ago. Daughter has been staying with patient at home. Currently in the process of finding intermediate facility for patient given increased need for supervision as per records. Few weeks weeks history of intermittent rectal bleeding without abdominal pain without emesis. Symptoms noted at rehab facility as per daughter. Outpatient providers aware of issue. Patient had follow-up with PCP 2 days ago. Plavix stopped while patient on Coumadin as per records. MMSE score at the office was 17 indicating moderate to severe dementia as per records. Worsening rectal bleeding noted yesterday as per records. Loose bloody stools as per patient without abdominal pain. No chest pain, no S OB no fluid retention. Patient brought to [facility] for evaluation. Hemoglobin noted to be 8.9, potassium 2.6, creatinine 3.9, lactate 2.8. UA hazy, negative ketones, positive for blood, trace protein, negative nitrite, WBC esterase positive, epithelial cells positive A. fib noted on EKG. Patient transferred to [facility] for Nephrology services. Patient received 1 unit packed RBC at [facility] ER prior to transfer. 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, was living by herself at home prior to February 2019 [facility] confinement Admission Exam Per Admitting Provider Physical Exam: GENERAL: Comfortable, hard of hearing, oriented to day, no respiratory distress SKIN: Pallor , warm HEENT: Pale palpebral conjunctivae, no ptosis, dry buccal mucosa NECK : Supple, no tenderness CHEST : Decreased breath sounds , no tenderness HEART : Irregular , no obvious murmurs ABDOMEN: Some distention, nontender EXTREMITIES : Minimal LE swelling, no LE tenderness, no other conspicuous deformities noted NEUROLOGIC : Coherent, no facial asymmetry, hard of hearing, intention tremors, no other gross focality Principal Diagnosis Acute blood loss anemia secondary to GI bleed, status post 1 unit of blood transfusion, atrial fibrillation on Coumadin, bilateral lower leg DVT, diabetes type 2, LUCILLE on CKD Discharge Exam Constitutional well developed and well nourished; no acute distress and not ill appearing Eyes PERRL, conjunctivae normal, anicteric sclerae ENMT external ear and nose normal, oropharynx normal Neck trachea midline, no thyromegaly Respiratory normal respiratory effort; no respiratory distress Auscultation: lungs clear to auscultation bilaterally and + crackles (Minimal crackles at the bases) Cardiovascular Rate/Rhythm: + abnormal rate and + abnormal rhythm Heart Sounds: no murmur Gastrointestinal (Abdomen) Inspection/Auscultation: abdomen normal to inspection and normal bowel sounds Percussion/Palpation: abdomen soft Neurologic moves all extremities Lymphatic no cervical or axillary lymphadenopathy Discharge Data Allergies Allergy/AdvReac Type Severity Reaction Status Date / Time cephalexin [From Keflex] Allergy Mild Hives Verified 04/29/19 03:39 FELICIANO Inhibitors AdvReac Mild Cough Verified 04/29/19 03:39 Consultations 04/29/19 02:27 Consult Case Management - Discharge Planning Routine 04/29/19 04:34 Consult Nephrology Routine 04/29/19 05:44 Consult Cardiology Routine Hospital Course (1) GI bleed: GI bleed Secondary to use of Plavix, aspirin and coumadin Hgb on admission 9.8 after received 1 unit PRBC at [facility] Continue coumadin Plavix was d/c by PCP 2 days ago and will not restart Case discussed with daughter and agreed with resume the coumadin, then if bleeding reoccurs will stop it Hgb has been stable and daughter agreed to hold on colonoscopy for now, but if bleeding reoccurs ok to eval for colonoscopy Hemoglobin remains stable at 9.4 and at 10.1 as of 05/05/2019 Afib Currently on NSR Rate controlled with metoprolol cardiology on board and further cardiac testing needed Recent ECHO on last admission at [facility] showed: Calculated LV ejection Fraction = 62% (bi-plane method of discs). There is a small sized inferior wall motion abnormality with Hypokinesis of the segments. The left ventricular diastolic function is moderately abnormal (grade II). Stable from cardiology standpoint Rate remains controlled We will increase the dose of metoprolol to 25 twice daily B/L LE DVT Recently diagnosed in Feb On coumadin that has been on hold due to GI bleed He was also on plavix that was d/c 3 days ago If GI bleed reoccurs, will consider to get IVC filter Has been tolerating Coumadin Will check INR tomorrow-1.21 05/05/2019 We will go slow due to recent GI bleed DM type 2 BS elevated Hba1c 6.8 On lantus 10mg BID while in the hospital Continue novolog sliding scale Continue monitor BS LUCILLE on CKD Creatinine on admission 3.4, baseline close to 3 Creatinine 3.1 today Nephrology on board Continue gentle hydration Torsemide on hold Creatinine is better at 2.6-1 05/04/2019 Creatinine seems to be at her baseline Advised more fluid intake orally Hypokalemia K 3.3 today case discussed with Nephrology and recommended potassium supplement 20mg daily Getting potassium supplement Monitor PRP Left back pain Xray showed no acute fracture or dislocation. Continue Lidocaine patch and Tylenol PRN DVT px on SCD due to GI bleeding On coumadin Code Status Full code Disposition Plan to transition to SNF Patient daughter requesting updates from providers. Crystal Tenzin, contact #[phone]. Like to go to [facility] this afternoon (2) Acute blood loss anemia: Secondary to above Total Time Total Time Spent Total Time Spent (In Minutes): 35 minutes Total Time Includes: Examination of the Patient, Discharge Planning, Medication Reconciliation and Communication With Other Providers Discharge Plan Discharge Items Patient Disposition: Transfer Jail Fac Reason For Visit: LGIB, ARF CKD Discharge Diagnosis: Acute blood loss anemia secondary to GI bleed, status post 1 unit of blood transfusion, atrial fibrillation on Coumadin, bilateral lower leg DVT, diabetes type 2, LUCILLE on CKD Condition on Discharge: Fair Activity: Resume your previous activity Non-emergency contact: Primary Care Provider Call non-emergency contact if: you have any medication questions and your symptoms worsen Follow-up/Referrals: German May MD [Surgeon] - 05/18/19 2:00 pm PCPMARC [Physician] - 05/11/19 12:35 pm (At [facility] with Dr Oliver) Diet: Carb Consistent or DM2 and Heart Healthy Fluids: 1500ml (6 cups) Ambulatory Orders: Basic Metabolic Panel (Routine) Timeframe: 1 Month Location: Determined by Patient Ordered By: Dayne Garnett Attending Provider Instructions: Please take precaution to avoid falls Try to drink more fluid up to 1500 mL daily Your torsemide dose has been decreased and blood pressure medicine dose has been increased Please keep follow-up appointment with voice teacher Please check your INR regularly to keep level at 2-3. Her INR as of 05/05/2019 is 1.2. Mariola [employer] Provider Instructions: -Resume torsemide at 20 mg daily Follow-up in CKD clinic with Dr. May in 2-4 wks -Basic metabolic panel and hemoglobin weekly x3 weeks Pending Studies at Discharge: No Stand-Alone Forms: My [employer] Skilled Items Patient informed of condition?: Yes DNR: No Discharge Level of Care: Skilled Communicable Disease: No Discharge Prognosis: Stable Lines: None Urinary Catheter: No Medications and DC Order Prescriptions: New potassium chloride [Klor-Con M20] 20 mEq Tablet,Er Particles/Crystals 20 meq PO DAILY 30 Days Qty: 30 RF: 0 lidocaine 5 % Adhesive Patch,Medicated 1 patch transdermal Q24H 30 Days Qty: 30 RF: 0 metoprolol tartrate 25 mg Tablet 25 mg PO BID 30 Days Qty: 60 RF: 0 torsemide 20 mg tablet 20 mg PO DAILY Qty: 30 RF: 0 tramadol 50 mg Tablet 25 mg PO Q8 PRN (Reason: Pain) 5 Days Qty: 15 RF: 0 Continued acetaminophen 325 mg Tablet 325 mg PO UD PRN (Reason: Pain) RF: 0 polyethylene glycol 3350 [Miralax] 17 gram Powder In Packet 17 g PO DAILY PRN (Reason: Constipation) RF: 0 vitamin E 100 unit Capsule 100 unit PO DAILY RF: 0 aspirin [Aspir-81] 81 mg Tablet,Delayed Release (Dr/Ec) 81 mg PO DAILY RF: 0 levothyroxine 88 mcg Tablet 88 mcg PO DAILY RF: 0 alprazolam [Xanax] 0.25 mg Tablet 0.25 mg PO DAILY PRN (Reason: Anxiety) RF: 0 amlodipine 10 mg Tablet 10 mg PO DAILY RF: 0 pantoprazole [Protonix] 40 mg Tablet,Delayed Release (Dr/Ec) 40 mg PO DAILY RF: 0 warfarin [Coumadin] 2 mg Tablet 2 mg PO HS RF: 0 sertraline [Zoloft] 50 mg Tablet 50 mg PO DAILY RF: 0 cholecalciferol (vitamin D3) [Vitamin D3] 10 mcg (400 unit) Tablet 400 unit PO DAILY RF: 0 docusate sodium 100 mg Tablet 100 mg PO BID RF: 0 insulin asp prt-insulin aspart [Novolog Mix 70-30FlexPen U-100] 100 unit/mL (70-30) Insulin Pen 24 unit SUBCUT QAM RF: 0 insulin asp prt-insulin aspart [Novolog Mix 70-30FlexPen U-100] 100 unit/mL (70-30) Insulin Pen 10 unit SUBCUT QPM RF: 0 rosuvastatin [Crestor] 40 mg Tablet 40 mg PO DAILY RF: 0 Myrbetriq 25 mg Tablet Extended Release 24 Hr 25 mg PO DAILY RF: 0 Discontinued torsemide 20 mg Tablet 60 mg PO DAILY RF: 0 metolazone 5 mg Tablet 5 mg PO 2XWK RF: 0 Discharge Orders: Discharge Order (Routine); Ordered 05/05/19 Ordered By: Dayne Lundy Admission Data Admit Date/Time: 04/29/19 02:13 Attending Provider: Dayne Lundy Admit Provider: Dayne Lundy Primary Care Provider: Kendrick,Dominique B. Other Providers: Mulu Silva ; German May ; Lina Thompson ; Bertha Freedman ; Oswald Gonzalez ; Clay Haines ; Enrike Bertrand ; Rafita Sagastume ; Hernesto Weller ; Bon [place] ; Abhishek Burks ; Juany Berumen ; Rupinder Mcclelland ; Javy Mcneil ; Dayne Lundy ; Ray, ; Sunday Up ; [facility] ; Esther Power Other Interventions: Discharge Summary Assessment (RN) Last Done: 05/05/19 16:14 DC Date/Time DO NOT enter until pt leaves facility: 05/05/19 17:13
== END 2019-05-05 17:13 | DRG 813 ==
LOC: SUATTDRO 04-29 02:13 → 2N 04-29 02:13 → 2W 05-03 21:45